=== PATIENT | male | born 1960 | race Caucasian/White ===

== ENCOUNTER 2023-06-01 05:24 | Inpatient (IN) ==
--- NOTE | 2023-05-01 11:21 | PAT Medication Instructions ---
Medication Instructions Date of Service May 01, 2023 Home Medications acetaminophen 500 mg tablet 500 mg PO Q6H PRN fexofenadine 180 mg tablet 180 mg PO QAM omeprazole 20 mg tablet,delayed release 20 mg PO DAILY PRN Continue as directed omeprazole 20 mg tablet,delayed release 20 mg PO DAILY PRN(if needed) DO NOT take the morning of surgery fexofenadine 180 mg tablet 180 mg PO QAM Take morning of surgery With a small sip of water, OTHERWISE NOTHING TO EAT OR DRINK AFTER MIDNIGHT: acetaminophen 500 mg tablet 500 mg PO Q6H PRN(if needed) Take evening before surgery acetaminophen 500 mg tablet 500 mg PO Q6H PRN(if needed) Other Notes If you have any questions please call us at [phone] or [phone] or [phone] or [phone]
--- NOTE | 2023-05-10 11:45 | Anesthesiology Consultation ---
Date of Service May 10, 2023 Assessment & Plan (1) Encounter for pre-operative examination: Chart Review Chart Review: Acceptable Risk for Surgery (pending PCP clearance ) and Patient seen in Pre Admission Testing - Awaiting PCP clearance 05/11/23 ([facility]) Patient is Jehovah Witness (T&S not done per patient request) (Per patient's Power of Rn Operating Room- "Use synthetic products if available before using blood fractions. Will accept devices that would be continually connected to body for blood storage and cleaning only if primed with non blood fluid. Will accept hemodilution cell salvage. Blood disconnected from the body must be discarded." Per PAT appt on 05/10/23, no recent illness/disease exposures, illness related symptoms, or recent illness/disease positive tests. Will leave to surgeon's discretion if preop Covid testing needed Teaching & Discussion Pre-Anesthesia Teaching/Discussion Notes: Instructed NPO after midnight before surgery,except medications with 15 cc of water. Medication instructions provided according to the PAT guidelines. History Surgery Operation Date: 06/01/23 09:35 Proposed Procedures p L2-L5 Decompression and Fusion, Spinal Cord Monitoring - Rivas Snowden DO Height/Weight Height: 5 ft 10.5 in Weight: 92.3 kg Allergies Allergy/AdvReac Type Severity Reaction Status Date / Time Penicillins Allergy Hives Verified 05/01/23 09:39 Medications Home Medications Medication Instructions Recorded Confirmed Last Taken acetaminophen 500 mg tablet 500 mg PO Q6H PRN Pain 05/01/23 05/01/23 Unknown fexofenadine 180 mg tablet 180 mg PO QAM 05/01/23 05/01/23 Unknown omeprazole 20 mg tablet,delayed 20 mg PO DAILY PRN gerd 05/01/23 05/01/23 Unknown release Past Medical History Medical History Refusal of blood transfusions as patient is Yarsanism Spinal stenosis GERD (gastroesophageal reflux disease) well controlled and stable - with Omeprazole PRN Sleep apnea BiPAP Exercise / Class Metabolic Activity II 4-5 Yardwork/Stairs/Walk up hill (one flight of stairs - no chest pain or SOB - exercises routinely ) Past Family History Family History Other No family history of adverse response to anesthesia Past Surgical History Surgical History History of colonoscopy Hx of LASIK History of wisdom tooth extraction History of esophagogastroduodenoscopy (EGD) Past Anesthesia History No Hx of Anesthesia Complications and No Family Hx of Anesthesia Complications History of PONV No Hx of PONV and No Hx of Motion Sickness Social History Smoking Status: Never smoker Do You Dip or Chew Tobacco: No Hx Alcohol Use: No Hx Substance Use: No substance use type: does not use Review of Systems Patient denies chest pain, shortness of breath, dyspnea on exertion, cough, wheezing, palpitations. No hx of seizures, stroke, [place]. No hx of blood clots or blood transfusions Physical Exam Vital Signs VITALS BP 133/75 P 61 TEMP 98.5 SP02 97% RESP 16 Constitutional no acute distress ENMT Mouth: no TMJ clicking Thyromental Distance: > or= 3.5 Finger Breadths (3.5) Mallampati Class: I Wire to front bottom teeth Neck neck extension not limited Respiratory normal respiratory effort; no respiratory distress Auscultation: lungs clear to auscultation bilaterally; no wheezes Cardiovascular Rate/Rhythm: regular rate and regular rhythm Heart Sounds: no murmur Vessels: no carotid bruit Musculoskeletal Spine: no pain with cervical ROM Extremities: extremities normal to inspection Psychiatric Orientation: alert Lab Results Anesthesia Preop Results Results Anesthesia Widget: WBC 5.98 K/ul (4.8-10.8) 05/10/23 Hgb 17.6 g/dl (14.0-18.0) 05/10/23 Hct 53.7 % (42.0-52.0) H 05/10/23 Plt 192 K/uL (130-400) 05/10/23 Na 141 mmol/L (136-145) 05/10/23 K 4.0 mmol/L (3.5-5.1) 05/10/23 Cl 104 mmol/L (98-107) 05/10/23 CO2 30 mmol/L (21-32) 05/10/23 BUN 17 mg/dl (6-23) 05/10/23 Creat 1.05 mg/dl (0.6-1.4) 05/10/23 Glucose Level 87 mg/dl (70-99(Fasting)) 05/10/23 PT 11.3 Seconds (9.0-12.0) 05/10/23 PTT 30 Seconds (21-31) 05/10/23 INR 1.0 (0.9-1.1) 05/10/23 Urine Color Yellow 05/10/23 Urine Appearance Clear (Clear) 05/10/23 Urine pH 7.0 (4.5-7.5) 05/10/23 Urine Specific [place] 1.015 (1.000-1.030) 05/10/23 Urine Protein Negative (Negative) 05/10/23 Urine Glucose (UA) Negative (Negative) 05/10/23 Urine Ketones Negative (Negative) 05/10/23 Urine Blood Trace (Negative) H 05/10/23 Urine Nitrite Negative (Negative) 05/10/23 Urine Bilirubin Negative (Negative) 05/10/23 Urine Urobilinogen Negative (Negative) 05/10/23 Urine Leukocyte Esterase Negative (Negative) 05/10/23 Urine WBC (Auto) 1-5 /hpf (0-5) 05/10/23 Urine RBC (Auto) 0-4 /hpf (0-4) 05/10/23 Urine Hyaline Casts (Auto) 0 /lpf (0-5) 05/10/23 Urine Epithelial Cells (Auto) 0-5 /lpf (0-5) 05/10/23 Urine Bacteria (Auto) Negative (Negative) 05/10/23 Testing Electrocardiogram Date: 05/10/23 Findings: + NSR @ (60bpm ) Normal EKG per cardio Chest X-Ray Date: 05/10/23 Findings: + NAD FINDINGS: PA and lateral chest radiographs are obtained. No prior studies are available for comparison at the time of dictation. The cardiomediastinal silhouette is unremarkable. There is mild bibasilar scarring/atelectasis. The lungs and pleural spaces are otherwise clear. There is no pneumothorax. The bony thorax appears intact. Stress Test Date: 10/04/18 Type: exercise Normal functional capacity. MPHR 101%. No significant chest discomfort. Negative exercise EKG response. This is a normal maximal treadmill exercise test
[2023-06-01] MEDS ORDERED: GABAPENTIN 600 MG DOSE PO SCH (06:00)
[2023-06-01] MEDS ORDERED: VANCOMYCIN HCL 1,500 MG in SODIUM CHLORIDE 0.9% 500 ML IV SCH (06:00)
[2023-06-01] MEDS ORDERED: ACETAMINOPHEN 500 MG TAB PO SCH (06:00)
[2023-06-01] MEDS ORDERED: LR 15ML/HR IV SCH (06:00)
[2023-06-01] MEDS ORDERED: LR 60ML/HR IV SCH (06:00)
[2023-06-01] MEDS ORDERED: CeleBREX 200 MG CAP PO SCH (06:00)
[2023-06-01] MEDS ORDERED: ATROPINE SULFATE 0.1 MG/ML 10ML SYR IV PRN (06:49)
[2023-06-01] MEDS ORDERED: ONDANSETRON INJ 2 MG/ML 2 ML VIAL IV PRN ×2 (06:49→13:51)
[2023-06-01] MEDS ORDERED: LABETALOL HCL IV 5 MG/ML 20ML IV PRN (06:49)
[2023-06-01] MEDS ORDERED: PROMETHAZINE HCL 6.25 MG in SODIUM CHLORIDE 0.9% 50 ML IV PRN (06:49)
[2023-06-01] MEDS ORDERED: LIDOCAINE 2% 2 ML VIAL/AMP(20MG/ML) INFIL ONE (06:58)
[2023-06-01] MEDS ORDERED: ONDANSETRON INJ 2 MG/ML 2 ML VIAL ONE (06:58)
[2023-06-01] MEDS ORDERED: DEXAMETHASONE SOD INJ 4 MG/ML VIAL ONE ×2 (06:58→07:01)
[2023-06-01] MEDS ORDERED: PROPOFOL IV EMULSION 10 MG/ML 20 ML VIAL IV ONE (06:58)
[2023-06-01] MEDS ORDERED: fentaNYL citrate PF 100 MCG/2 ML VIAL ONE (06:58)
[2023-06-01] MEDS ORDERED: ROCURONIUM BROMIDE 10 MG/ML 5 ML VIAL IV ONE ×4 (06:58→09:03)
[2023-06-01] MEDS ORDERED: HYDROmorphone INJ 2 MG/ML SYR/VIAL ONE (06:59)
[2023-06-01] MEDS ORDERED: MIDAZOLAM HCL 1 MG/ML 2ML VIAL ONE (06:59)
[2023-06-01] MEDS ORDERED: ceFAZolin 330 MG/ML 1 GM VIAL ONE (07:05)
[2023-06-01] MEDS ORDERED: KETAMINE HCL 10MG/ML SYR ONE (07:05)
[2023-06-01] MEDS ORDERED: BUPIVACAINE/EPINEPHRINE 0.5% MPF 1:200,000 30 ML VIAL ONE (07:06)
--- NOTE | 2023-06-01 08:09 | History & Physical Bridge Note ---
Date of Service June 01, 2023 History & Physical Bridge Note I have examined the patient, reviewed the History & Physical and in the interval since the performance of the History & Physical I have noted the following changes of clinical significance: no changes noted
--- NOTE | 2023-06-01 08:12 | History & Physical Report ---
Date of Service June 01, 2023 Assessment & Plan (1) Neurogenic claudication due to lumbar spinal stenosis: Plan: L2-L5 decompression and fusion History of Present Illness Chief Complaint: Back and leg pain Primary Care Provider: NO PCP 62-year-old male presents with chronic persistent back and leg pain after failing course of nonoperative care is here for surgical invention. Allergies Allergy/AdvReac Type Severity Reaction Status Date / Time Penicillins Allergy Hives Verified 06/01/23 05:52 Home Medications Medication Instructions Recorded Confirmed Type acetaminophen 500 mg tablet 500 mg PO Q6H PRN Pain 05/01/23 06/01/23 History fexofenadine 180 mg tablet 180 mg PO QAM 05/01/23 06/01/23 History omeprazole 20 mg tablet,delayed 20 mg PO DAILY PRN gerd 05/01/23 06/01/23 History release Past Med/Surg History Medical History Refusal of blood transfusions as patient is Synagogue Spinal stenosis GERD (gastroesophageal reflux disease) well controlled and stable - with Omeprazole PRN Sleep apnea BiPAP Surgical History History of colonoscopy Hx of LASIK History of wisdom tooth extraction History of esophagogastroduodenoscopy (EGD) Family History Other No family history of adverse response to anesthesia Social History Smoking Status: Never smoker Second Hand Exposure: No; Do You Dip or Chew Tobacco: No; Hx Alcohol Use: No Hx Substance Use: No Preferred Language: Kuwaiti Communication Ability: Effective Founder And Chief Executive Officer Required: No Beliefs That Will Affect Care: Baptism Baptism Beliefs: Synagogue - no blood products Current Living Situation: Spouse Feels Safe at Home: Yes Safety Concerns: Feels Safe At This Time Assistive Devices: Glasses Assistive Devices Comment: glasses for reading Physical Exam Physical Exam: Patient is alert and oriented Heart rate and rhythm Lungs clear Results & Data Results & Data Vital Signs (Past 12 Hours) Vital Signs Temp Pulse Resp BP Pulse Ox O2 Del Method 06/01/23 05:55 36.8 C 55 L 20 168/77 H 98 Room Air
[2023-06-01] MEDS ORDERED: FLOSEAL HEMOSTATIC MATRIX 10ML TOP ONE (09:04)
[2023-06-01] MEDS ORDERED: ePHEDrine sulfate 50 MG/5 ML SYR ONE (09:38)
[2023-06-01] MEDS ORDERED: SUGAMMADEX SODIUM 200 MG/2 ML VIAL IV ONE (11:16)
--- NOTE | 2023-06-01 11:25 | Operative Report ---
Post Operative Report Pre & Post Diagnosis Operation Date: 06/01/23 08:15 Pre-Op Diagnosis: Neurogenic claudication due to lumbar spinal stenosis Post-Op Diagnosis: Neurogenic claudication due to lumbar spinal stenosis I identified the patient and participated in the time-out.: Yes Procedure Operation Date: 06/01/23 08:15 Actual Procedures #1 lumbar decompression bilateral medial facetectomies and foraminotomies L2-L3, L3-L4 and L4-5. #2 posterior spinal fusion L2-L5. #3 placed posterior segmental instrumentation L2-L5. #4 interbody fusion L3-L4 L4-5. #5 placement spiral 10 x 26 mm at L3-L4 on the right and 11 x 26 mm at L4-5 on the left. #6 placement locally harvested morselized autograft and posterior gutters. #7 placement of I factor interbody space and infuse collagen sponge combined with Koros in the posterior lateral gutters. Surgeon Rivas Snowden DO Transportation Lead Suhas Suero Estimated Blood Loss 500 Findings Consistent with Post-Op Diagnosis Specimens None Indications This is a 62-year-old male presents manage diagnosis of failed course of nonoperative care is here for surgical invention. Description of Procedure Patient was met with identified informed consent obtained. Patient was then taken to the operative suite underwent ablation placed in a prone position on the Miller table on top of the Ferm[place] frame. All bony prominences well-padded eyes inspected to ensure no external pressure placed upon the. This point the lumbar spine was prepped and draped in a sterile fashion. Sharp dissection with the assistance of Bovie cautery form down to and exposing the lamina and transverse processes of L2 L3-L4-L5 bilaterally. From caudal cephalad fashion complete laminectomy of L4 L3 L2 was performed including bilaterally facetectomies and foraminotomies addressing severe spinal stenosis. Pedicle screws were then placed in L2-L3 L4-5 bilaterally with assistance of fluoroscopy in the process eve contoured and placed. By way of transforaminal approach on the left complete discectomy of L4-5 was performed endplates guarded to subcortical mean bone 11 x 26 mm Spira cage with I factor tapped in position. Then proceeded to L3-L4 by way of a transfemoral approach and right complete discectomy performed endplates guarded to subcortical bleeding bone and a 10 x 26 mm Spira cage filled with I factor tapped in position. The rods were then locked in final position bilaterally. The transverse processes of 2 3 and 45 were then burred to subcortical bleeding bone. Infuse collagen sponge combined with Koros and autograft was placed in the posterior gutters. 15 round KEELY inserted. The incision was then closed with 1 Vicryl to fascia 2-0 Vicryl subcutaneously and 4 Monocryl for fascial closure. Steri-Strips dressing placed. Patient was then taken to PACU in stable condition. Please note Suhas Suero was present at the entire procedure involved in patient positioning complex portion of the surgery and final skin closure. Lastly spinal cord monitoring was utilized at the procedure no changes noted. I attest to the content of the Intraoperative Record and any orders documented therein. Any exceptions are noted below.
--- NOTE | 2023-06-01 11:31 | Fluoroscopy Report ---
FL lumbar spine 2-3V CLINICAL HISTORY: L2-L5 DECOMPRESSION FUSION WITH INTERBODY COMPARISON STUDY: None FLUOROSCOPY TIME: 36.5 seconds FLUOROSCOPY IMAGES: 3 EXPOSURE DOSE: 27.07 mGy FINDINGS: Posterior interbody eve and screw fusion hardware is noted in what appears to be the L2-L5 levels with L3-L4 and L4-L5 discectomy. The hardware appears intact. Multilevel moderate intervertebr al disc space narrowing, spondylotic spurring and facet arthrosis. No unexpected opaque foreign ambika s. Dextroscoliosis. IMPRESSION: Fluoroscopic assistance as above. ACT 112: Negative or not required by law. Electronically signed by: Omari Celestin M.D. 06/01/2023 11:29 AM
--- NOTE | 2023-06-01 12:53 | Anesthesiology Progress Note ---
Date of Service June 01, 2023 Anesthesia Post Procedure Vital Signs Vital Signs: Temp Pulse Pulse Resp BP Pulse Ox O2 Del Method 06/01/23 12:45 74 22 123/80 95 Room Air 06/01/23 12:35 78 12 134/85 93 Room Air 06/01/23 12:25 72 12 143/85 H 95 Oxymask 06/01/23 12:15 90 14 116/79 98 Oxymask 06/01/23 12:05 75 14 135/70 99 Oxymask 06/01/23 11:55 36.4 C L 67 12 131/79 99 Oxymask 06/01/23 05:55 36.8 C 55 L 20 168/77 H 98 Room Air O2 Flow Rate 06/01/23 12:45 06/01/23 12:35 06/01/23 12:25 4 06/01/23 12:15 6 06/01/23 12:05 8 06/01/23 11:55 10 06/01/23 05:55 Pain Intensity Left Lower Back: Pain Intensity: 4 Transfer of Care Handoff Completed per policy Notes Mental Status: alert / awake / arousable Patient Amnestic to Procedure: Yes Nausea / Vomiting: adequately controlled Pain: adequately controlled Airway Patency, RR, SpO2: stable & adequate BP & HR: stable & adequate Hydration State: stable & adequate Anesthetic Complications: no major complications apparent
[2023-06-01] MEDS: HYDROmorphone INJ 1 MG/ML SYRINGE IV PRN ×5 (12:55→23:04)
[2023-06-01] MEDS ORDERED: ACETAMINOPHEN 1,000 MG/100 ML VIAL IV PRN (13:51)
[2023-06-01] MEDS ORDERED: bisacodyL 10 MG SUPP PR PRN (13:51)
[2023-06-01] MEDS ORDERED: ALUMINUM/MAGNESIUM SUSP 30 ML UDC PO PRN (13:51)
[2023-06-01] MEDS ORDERED: SOD PHOSPHATE/SOD BIPHOSPHATE ENEMA 132 ML BTL PR PRN (13:51)
[2023-06-01] MEDS ORDERED: DO NOT ADMINISTER FLU VACCINE PRN (13:51)
[2023-06-01] MEDS ORDERED: hydrOXYzine HCl 25 MG TAB PO PRN (13:51)
[2023-06-01] MEDS ORDERED: LORazepam 0.5 MG in SYRINGE 0.25 ML IV PRN (13:51)
[2023-06-01] MEDS ORDERED: DO NOT ADMINISTER PNEUMOCOCCAL VACCINE PRN (13:51)
[2023-06-01] MEDS ORDERED: LACTATED RINGER'S 1,000 ML IV SCH (13:51)
[2023-06-01] MEDS ORDERED: NALOXONE HCL 0.4 MG/1 ML VIAL/CARP IV PRN (13:51)
[2023-06-01] MEDS ORDERED: PROMETHAZINE HCL 12.5 MG in SODIUM CHLORIDE 0.9% 50 ML IV PRN (13:51)
[2023-06-01] MEDS ORDERED: ONDANSETRON 4 MG OD TAB PO PRN (13:51)
[2023-06-01] MEDS ORDERED: METOCLOPRAMIDE HCL INJ 5 MG/ML 2 ML VIAL IV PRN (13:51)
[2023-06-01] MEDS ORDERED: HYDROmorphone INJ 0.5 MG/0.5 ML SYR IV PRN (13:51)
[2023-06-01] MEDS ORDERED: FAMOTIDINE 20 MG TAB PO PRN (13:51)
[2023-06-01] MEDS ORDERED: diphenhydrAMINE Capsule 25 MG CAP PO PRN (13:51)
[2023-06-01] MEDS ORDERED: VANCOMYCIN CONSULT ACTIVE PRN (13:51)
[2023-06-01] MEDS ORDERED: MAGNESIUM HYDROXIDE SUSP 30 ML UDC PO PRN (13:51)
[2023-06-01] MEDS ORDERED: PANTOprazole 40 MG TAB PO PRN (14:07)
[2023-06-01] MEDS: KETOROLAC 30 MG/ML VIAL IV SCH ×2 (14:25→19:25)
--- NOTE | 2023-06-01 15:08 | Hospitalist Consultation ---
Date of Consultation June 01, 2023 Assessment & Plan (1) Status post lumbar spine surgery for decompression of spinal cord: Lumbar decompression of L2-L5 with Dr. Snowden on 06/01/2023 Postop lumbar spine x-ray revealed multilevel moderate intervertebral disc space narrowing, spondylitic spurring, and facet arthrosis; however, hardware intact Perioperative antibiotics, pain management, DVT PPx, and fluids per the primary team Per patient, no new complaints at time of consult Agree with a.m. CBC, BMP, we will follow PT consulted (2) GERD (gastroesophageal reflux disease): Continue omeprazole, or pantoprazole equivalent (3) Sleep apnea: Patient brought in his home BiPAP to the hospital; okay to use while inpatient Plan Agree with medical management: Disposition: MedSurg Full liquid diet, and advance as tolerated VTE PPx: SCDs/teds Thank you for allowing us to participate in the care of this patient, please reach out with any questions or concerns. History of Present Illness Reason for Consultation: Medical management Requesting Physician: Rivas Snowden DO Attending Physician: Rivas Snowden DO History of Present Illness Kalyan is a pleasant 62-year-old male with PMH of GERD, RENE. He presented for L2-L5 decompression and fusion with Dr. Snowden on 06/01/2023 for neurogenic claudication due to lumbar spinal stenosis. Per review of operative note, EBL was listed as 500 cc. Patient is not having LBP at time of consult. He endorses mild lower back tightness, but notes that the burning sensation he had before is gone. No radiation of the back or down into the legs. No pain at present. He is okay lying in his current position, and is eager to start ambulating. Patient took omeprazole and Enma last night; no other medications. He has been occasionally taking Tylenol as needed in the mornings for LBP. He also reports that he frequently kneels whenever the LBP comes on, which helps to open up the back. Patient uses a home BiPAP at night which he brought in to the hospital. No other supplemental oxygen therapy. Patient reports he has been eating and drinking okay since being up. Thorpe in place, but no reported burning urinary sensation. Per review of patient's vitals, he has been stable postop; SpO2 97% on RA ROS: Patient endorses brain fog, nausea, and lower back tightness. Patient denies fever, chills, sweating, dizziness, lightheadedness, headache, chest pain, pleuritic CP, SOB, cough, abdominal pain, vomiting, or numbness/tingling in the legs. Allergies Allergy/AdvReac Type Severity Reaction Status Date / Time Penicillins Allergy Hives Verified 06/01/23 05:52 Home Medications Medication Instructions Recorded Confirmed Type acetaminophen 500 mg tablet 500 mg PO Q6H PRN Pain 05/01/23 06/01/23 History fexofenadine 180 mg tablet 180 mg PO QAM 05/01/23 06/01/23 History omeprazole 20 mg tablet,delayed 20 mg PO DAILY PRN gerd 05/01/23 06/01/23 History release Patient History Medical History (Updated 06/01/23 @ 15:05 by Kevin Wilhelm PA-C) Refusal of blood transfusions as patient is Anabaptism Spinal stenosis GERD (gastroesophageal reflux disease) well controlled and stable - with Omeprazole PRN Sleep apnea BiPAP Surgical History (Updated 06/01/23 @ 15:05 by Kevin Wilhelm PA-C) History of colonoscopy Hx of LASIK History of wisdom tooth extraction History of esophagogastroduodenoscopy (EGD) Family History Other No family history of adverse response to anesthesia Social History (Updated 06/02/23 @ 05:15 by Carlie Bosch, RN) Smoking Status: Former smoker Second Hand Exposure: No; Do You Dip or Chew Tobacco: No; Hx Alcohol Use: Yes Alcohol type: beer Alcohol type Comment: pt states he no longer drinks Hx Substance Use: Yes (patient states he no longer uses ) Prescribed Medications: Marijuana Preferred Language: Eritrean Communication Ability: Effective Private Duty Nurse Required: No Beliefs That Will Affect Care: Church Church Beliefs: Anabaptism - no blood products Current Living Situation: Spouse Feels Safe at Home: Yes Safety Concerns: Feels Safe At This Time Assistive Devices: BiPap and Cane Assistive Devices Comment: glasses for reading Review of Systems Review of Systems: See HPI above Physical Exam Physical Exam: General: no acute distress; pleasant affect; non-toxic appearing; well- nourished; cooperative HEENT: normocephalic, atraumatic; no scleral icterus; excessive blinking; PERRLA w/ EOMs intact; moist mucus membrane; vision and hearing grossly intact Neck: supple; no lymphadenopathy; trachea midline Skin: warm, dry without signs of tenting; no cyanosis; no rashes, bruising, lesions, or erythema noted CV: chest wall NTP; RRR; S1/S2 normal; no murmurs/rubs/gallops; pulses intact and symmetric at radial, DP, and PT Lungs: no acute respiratory distress; symmetrical chest wall expansion; clear breath sounds across all lung parker w/o adventitious sounds; no wheezing ABD: Soft, NTP; BS present; no rebound/guarding; no ascites; no distention Back: Upper spine NTP; surgical site dressed without signs of erythema, drainage, or infection MSK: no tics or fasciculations; no edema noted in the LEs b/l, nonerythematous (SCDs/teds in place); patient demonstrates ability to wiggle toes bilaterally; neurovascularly intact Neuro: A&Ox3; normal mood and affect; fluent speech; no focal deficits; sensation grossly intact in the LEs b/l assessed via light touch at the feet Results & Data Results & Data Vital Signs (Past 12 Hours) Vital Signs Temp Pulse Pulse Resp BP Pulse Ox O2 Del Method 06/01/23 13:51 36.7 C 66 18 125/84 97 Room Air 06/01/23 13:25 56 L 14 111/61 97 Room Air 06/01/23 13:15 61 18 119/78 95 Room Air 06/01/23 13:05 67 22 119/71 97 Room Air 06/01/23 12:55 36.5 C 75 18 116/71 95 Room Air 06/01/23 12:45 74 22 123/80 95 Room Air 06/01/23 12:35 78 12 134/85 93 Room Air 06/01/23 12:25 72 12 143/85 H 95 Oxymask 06/01/23 12:15 90 14 116/79 98 Oxymask 06/01/23 12:05 75 14 135/70 99 Oxymask 06/01/23 11:55 36.4 C L 67 12 131/79 99 Oxymask 06/01/23 05:55 36.8 C 55 L 20 168/77 H 98 Room Air O2 Flow Rate 06/01/23 13:51 06/01/23 13:25 06/01/23 13:15 06/01/23 13:05 06/01/23 12:55 06/01/23 12:45 06/01/23 12:35 06/01/23 12:25 4 06/01/23 12:15 6 06/01/23 12:05 8 06/01/23 11:55 10 06/01/23 05:55 Diagnostic Findings Lumbar Spine X-Ray 06/01/23 08:15 FL lumbar spine 2-3V CLINICAL HISTORY: L2-L5 DECOMPRESSION FUSION WITH INTERBODY COMPARISON STUDY: None FLUOROSCOPY TIME: 36.5 seconds FLUOROSCOPY IMAGES: 3 EXPOSURE DOSE: 27.07 mGy FINDINGS: Posterior interbody eve and screw fusion hardware is noted in what appears to be the L2-L5 levels with L3-L4 and L4-L5 discectomy. The hardware appears intact. Multilevel moderate intervertebral disc space narrowing, spon dylotic spurring and facet arthrosis. No unexpected opaque foreign bodies. Dextroscoliosis. IMPRESSION: Fluoroscopic assistance as above. ACT 112: Negative or not required by law. Electronically signed by: Omari Celestin M.D. 06/01/2023 11:29 AM PG Care Time/CCT Total # of Minutes Spent Total Time Spent with Patient: Total time spent is greater than 50% in coordination of care (as documented) at patient's floor/unit and/or counseling patient: Coding [place] [address] IN/OBS CONSULT LVL 2,35M Patient Type Established Medical Decision Making Low Complexity Diagnoses Status post lumbar spine surgery for decompression of spinal cord Z98.890 GERD (gastroesophageal reflux disease) K21.9 Sleep apnea G47.30
[2023-06-01] MEDS ORDERED: VANCOMYCIN HCL 1,250 MG in SODIUM CHLORIDE 0.9% 250 ML IV SCH (18:00)
[2023-06-01] MEDS ORDERED: VANCOMYCIN HCL 1,250 MG in SODIUM CHLORIDE 0.9% 500 ML IV SCH (18:00)
[2023-06-01] MEDS: DOCUSATE SODIUM/SENNA 50/8.6MG TAB PO SCH (19:25)
[2023-06-01] MEDS: traMADol HCL 50 MG TABLET PO PRN (22:10)
[2023-06-02] MEDS: KETOROLAC 30 MG/ML VIAL IV SCH ×2 (01:49→07:32)
[2023-06-02] MEDS: POLYETHYLENE (MIRALAX) 17 GM PACK PO SCH ×4 (04:43→22:59)
[2023-06-02] MEDS: HYDROmorphone INJ 1 MG/ML SYRINGE IV PRN ×2 (04:46→22:56)
[2023-06-02 06:23] LABS: Basophils # (auto) 0.03 K/uL (0.00-0.20); Basophils % (auto) 0.2 %; Eosinophils # (auto) 0.01 K/uL (0.00-0.50); Eosinophils % (auto) 0.1 %; Hematocrit (blood only) 43.3 % (42.0-52.0); Hemoglobin 14.3 g/dl (14.0-18.0); Immature Granulocytes # (auto) 0.06 K/uL (0.01-0.20); Immature Granulocytes % (auto) 0.4 %; Lymphocytes % (auto) 10.7 %; Mean Corpuscular Hemoglobin 28.8 pg (25.0-34.0); Mean Corpuscular Volume 87.1 fL (80.0-100.0); Mean Platelet Volume 9.4 fL (9.4-12.4); Monocytes # (auto) 1.26 K/uL (0.11-0.59); Neutrophils % (auto) 79.6 %; Platelet Count 194 K/uL (130-400); RDW Coefficient of Variation 12.2 % (11.5-14.5); RDW Standard Deviation 39.3 fL (36.4-46.3); Red Blood Count 4.97 M/uL (4.70-6.10); White Blood Count 13.96 K/ul (4.8-10.8)
[2023-06-02 06:36] LABS: BUN Creatinine Ratio 19.6 (10-20); Creatinine Clr Calc Pharmacy 86.5 ml/min; Est GFR (African American) 91.5 ml/min; Potassium 4.2 mmol/L (3.5-5.1)
[2023-06-02] MEDS: FEXOFENADINE HCL 180 MG TAB PO SCH (07:32)
[2023-06-02] MEDS: dexAMETHasone 6 MG in SYRINGE 0 ML IV SCH (07:32)
--- NOTE | 2023-06-02 08:30 | Orthopedic Progress Note ---
Date of Service June 02, 2023 Assessment & Plan (1) Neurogenic claudication due to lumbar spinal stenosis: Plan: Kalyan is postoperative day 1 status post L2-5 decompression and fusion. Maintain KEELY drain. Start physical therapy today. Ambulate ad willem. Continue with pain control. DVT prophylaxis is in the form teds and SCDs. Anticipate discharge home early next week Admission and Anticipated Discharge Date Admission Date: June 01, 2023 Subjective Kalyan is postoperative day 1 status post L2-L5 decompression and instrumented fusion. He had an uneventful evening. H&H is morning are 14.3 and 43.3 respectively. KEELY drain output last shift was 100 cc. Back and leg pain greatly improved. Thorpe catheter was removed remove this morning. He has not been up and ambulatory yet. Review of Systems Review of Systems: All systems reviewed & are unremarkable except as noted in HPI & below Physical Exam Physical Exam: Sitting in a chair eating breakfast in no acute distress Lumbar dressing is clean dry and intact with functioning KEELY drain Calf soft and nontender bilaterally Strength intact bilateral lower extremities Results & Data Vital Signs (Past 12 Hours) Vital Signs Temp Pulse Pulse Resp BP Pulse Ox O2 Del Method 06/02/23 07:28 36.5 C 55 L 16 111/61 96 Room Air 06/02/23 07:27 36.5 C 57 L 16 145/73 H 99 Room Air 06/02/23 03:33 36.6 C 58 L 14 100/48 L 96 Room Air 06/01/23 22:59 36.7 C 56 L 16 116/52 L 96 Room Air
[2023-06-02] MEDS: oxyCODONE HCL IR 5 MG TAB (IMMEDIATE RELEASE) PO PRN ×2 (11:08→19:20)
--- NOTE | 2023-06-02 12:06 | Hospitalist Progress Note ---
Date of Service June 02, 2023 Assessment & Plan (1) Status post lumbar spine surgery for decompression of spinal cord: Plan: Lumbar decompression of L2-L5 with Dr. Snowden on 06/01/2023 -Perioperative antibiotics, pain management, DVT PPx, and fluids per the primary team Hemoglobin stable:14.3. leukocytosis likely reactive from steroids received intraoperatively PT consulted (2) GERD (gastroesophageal reflux disease): Plan: Continue PPI (3) Sleep apnea: Plan: Patient brought in his home BiPAP to the hospital; continue use while inpatient Plan Disposition: medically stable VTE PPx: SCDs/teds Hospitalist service will sign off. Please reach out with any new concerns. Admission and Anticipated Discharge Date Admission Date: June 01, 2023 Supervising Physician Co-Signing Physician Notes Attending Attestation - Chart reviewed, care plan d/w MEHNAZ Evans. I agree w/ the cheema components of her documentation. Chad Keith MD Subjective patient seen ambulating in the room. States his pain is well-controlled. Had a small pellet-like stool this morning. Reports good appetite. denies chest pain or shortness of breath. No acute concerns Hopeful to return home in the next few days, possibly tomorrow Review of Systems Review of Systems: All systems reviewed & are unremarkable except as noted in Subjective Physical Exam Physical Exam: General: NAD, ambulating with walker, VS as above Resp: normal respiratory effort, lungs clear to auscultation CV: RRR, no murmur, back: KEELY drain in place, dressing clean dry and intact Extremities: Moves all extremities, RENA hose on bilateral lower extremities Neuro: A&O x3, Skin: intact, no lesions noted Results & Data Results & Data Vital Signs (Past 12 Hours) Vital Signs Temp Pulse Pulse Resp BP Pulse Ox O2 Del Method 06/02/23 07:28 36.5 C 55 L 16 111/61 96 Room Air 06/02/23 07:27 36.5 C 57 L 16 145/73 H 99 Room Air 06/02/23 03:33 36.6 C 58 L 14 100/48 L 96 Room Air Laboratory Results CBC and chemistry reviewed PG Care Time/CCT Total # of Minutes Spent Total Time Spent with Patient: Total time spent is greater than 50% in coordination of care (as documented) at patient's floor/unit and/or counseling patient: Coding Level of Care Code 04013 SUB INP/OBS CARE MIN Diagnoses Status post lumbar spine surgery for decompression of spinal cord Z98.890 GERD (gastroesophageal reflux disease) K21.9 Sleep apnea G47.30
[2023-06-02] MEDS: DOCUSATE SODIUM/SENNA 50/8.6MG TAB PO SCH (19:34)
[2023-06-02] MEDS: LORazepam 0.5 MG TAB PO PRN ×2 (20:30→21:52)
[2023-06-03] MEDS: POLYETHYLENE (MIRALAX) 17 GM PACK PO SCH ×3 (06:01→17:06)
[2023-06-03] MEDS: FEXOFENADINE HCL 180 MG TAB PO SCH (08:11)
[2023-06-03] MEDS: dexAMETHasone 6 MG in SYRINGE 0 ML IV SCH (08:11)
--- NOTE | 2023-06-03 08:36 | Orthopedic Progress Note ---
Date of Service June 03, 2023 Assessment & Plan (1) Neurogenic claudication due to lumbar spinal stenosis: Plan: Kalyan is postoperative day 2 status post L2 through 5 decompression and fusion. Will continue physical therapy today. Continue with pain control. DVT prophylaxis is in the form teds and SCDs. Continue with aggressive bowel regimen. Maintain KEELY drain. Anticipate discharge home tomorrow. Admission and Anticipated Discharge Date Admission Date: June 01, 2023 Lamont Biggs is postoperative day 2 status post L2-5 decompression and fusion. Had some more limiting pain last evening requiring IV medication. It is better this morning. Right leg pain has resolved. Still has some occasional left lower extremity symptoms. Yesterday in physical therapy imaging 300 feet. KEELY drain output last shift was 55 cc. He is passing flatus but no bowel movement. Review of Systems Review of Systems: All systems reviewed & are unremarkable except as noted in HPI & below Physical Exam Physical Exam: Sitting in a chair in no acute distress Alert and oriented x 3 lumbar dressing is clean dry intact with functioning KEELY drain Strength unchanged bilateral lower extremities Calf soft and nontender bilaterally Results & Data Vital Signs (Past 12 Hours) Vital Signs Temp Pulse Resp BP Pulse Ox O2 Del Method 06/03/23 07:51 36.6 C 56 L 16 152/76 H 98 Room Air
[2023-06-03] MEDS: ACETAMINOPHEN 500 MG TAB PO PRN (16:31)
[2023-06-03] MEDS: DOCUSATE SODIUM/SENNA 50/8.6MG TAB PO SCH (21:10)
[2023-06-03] MEDS: traMADol HCL 50 MG TABLET PO PRN (21:13)
[2023-06-04] MEDS: FEXOFENADINE HCL 180 MG TAB PO SCH (07:33)
[2023-06-04] MEDS: dexAMETHasone 6 MG in SYRINGE 0 ML IV SCH (07:33)
[2023-06-04] MEDS: ACETAMINOPHEN 500 MG TAB PO PRN (07:37)
--- NOTE | 2023-06-04 10:43 | Discharge Summary ---
Date of Service June 04, 2023 Admission HPI Per Admitting Provider 62-year-old male presents with chronic persistent back and leg pain after failing course of nonoperative care is here for surgical invention. Principal Diagnosis Lumbar spinal stenosis with neurogenic claudication Discharge Data Allergies Allergy/AdvReac Type Severity Reaction Status Date / Time Penicillins Allergy Hives Verified 06/01/23 05:52 Consultations 06/01/23 13:51 Consult Hospitalist Routine Procedures Performed Operation Date: 06/01/23 08:15 Actual Procedures p L2-L5 Decompression and Fusion, Spinal Cord Monitoring(Not Applicable) - Rivas Snowden DO Ordered Studies 06/01/23 08:15 [place] lumbar spine 2-3V Routine Hospital Course (1) Neurogenic claudication due to lumbar spinal stenosis: Patient went multilevel lumbar decompression fusion tolerated this well was taken to orthopedic for postoperative. Postop Carlton progressed appropriately. Up and ambulating daily. KEELY drain decreasing well. Pain well-controlled. Excellent strength testing. Simply discharged home. Discharge orders instructions on the chart for further review. Total Time Total Time Spent Total Time Spent (In Minutes): 20 minutes Discharge Plan Discharge Items Patient Disposition: Home - Self-Care Reason For Visit: Lumbar Spondylosis, Spinal Stenosis of Lumbar Peggy Discharge Diagnosis: Lumbar spinal stenosis with neurogenic claudication Activity: As commented below Non-emergency contact: Primary Care Provider Call non-emergency contact if: you have any medication questions Follow-up/Referrals: PCPANGIE [Primary Care Provider] - Diet: Regular Addtl Attending Provider Instructions: ACTIVITY RECOMMENDATIONS: SELF CARE INSTRUCTIONS AFTER THORACIC/LUMBAR FUSIONS 1. You may walk to your tolerance. It is good exercise for your legs and back. Expect some back and intermittent leg aches and pains. 2. You may perform "counter-top" level activities (make a sandwich, bob with a project, etc.). 3. No bending or lifting of more than 10 pounds or back twisting of any nature (roll like a log when turning in bed). 4. You may ride in a car for 20-30 minutes at a time. No driving until after your first visit with your doctor. 5. Frequent changes of position and restricting sitting to 30 minutes at a time will help limit the amount of back spasms and stiffness you may experience. 6. You may discontinue the use of ambulatory aids (cane, crutches, etc.) once your strength and confidence allow. 7. You may employment instructional associate the shower and let water strike your incision when you arrive home at least once daily. Do not take a tub bath, sit in a hot tub or go into a swimming pool until after your first recheck in the office. SPECIAL CARE INSTRUCTIONS: VERY IMPORTANT TO READ AND REVIEW A. Your surgical incision has been closed with a cosmetic suture under the skin that will dissolve in about 6 weeks. In 14 days, you can use a pair of clean scissors and cut the suture that is left outside of the skin at the ends of your incision. 1. The small skin tapes can be removed 7 days after surgery if they have not fallen off by that point. 2. You may keep the wound open to air as much as possible to promote healing after post-op day number 5 unless told otherwise by your doctor. 3. If you think the wound looks like it is becoming infected (redness or worsening drainage) and/or you are experiencing fever, chill or worsening back pain and muscle spasms, contact the office so that we may evaluate you as soon as possible. B. Complications are uncommon, but please contact us if you have any signs or symptoms of: 1. wound infection (fever higher than 102.5 degrees F, redness, separation of wound, drainage, or increasing pain from the incision) 2. blood clots in legs (pain, swelling, redness and warmth in legs) 3. urinary tract infection (fever higher than 102.5 degrees F, burning upon urination or increased frequency of urination) 4. nerve problems (inability to walk on your toes or heels, numbness, loss of bowel or bladder control) 5. any other symptoms that concern you C. Please call the office at if you have any concerns or questions about your operation or recovery. D. No smoking! Smoking drastically decreases the chance of a solid fusion. E. Do not take any anti-inflammatory medications (Indocin, Advil, Motrin, Aspirin, Naprosyn, etc.) as these may inhibit the chance of a solid fusion. Tylenol is okay to take for pain. MANAGING PAIN AFTER SPINAL SURGERY 1. Narcotic medication is intended for short-term use and will be provided for surgical pain. Surgical pain usually lasts for a period of 4-6 weeks. Narcotic medication includes Percocet, Vicodin, Darvocet, Tylenol #3 or Lortab. 2. Longer-term pain is more appropriately treated with non-narcotic medication such as Tylenol ES. 3. Muscle spasm is not appropriately treated with narcotics. Muscle relaxers such as Soma, Flexeril or Skelaxin can be used along with Tylenol ES. 4. Remember that we all live with some "aches and pains". This is not unusual or uncommon after an injury or as we get older. a. Back pain is expected and may include muscle spasms for 4 to 6 weeks after surgery. The pain should gradually improve. If the pain worsens for no apparent reason, please contact the office. b. Intermittent leg pain may also be experienced and should not be concerned about unless it worsens for no apparent reason. If so, please contact the office. 5. We will provide appropriate medication within the normal guidelines of their prescribed use. We will also be very cautious and aware of potential abuse and extended duration of patients' medication needs. a. Pain medications are for your comfort and to assist with sleep and rest so that the tissue can heal. They are not provided in order to return to normal activity and should not be used through the day. To do so or worsening pain at night can result from ongoing tissue damage and development of tolerance to the prescribed medicine. 6. Please allow 2-3 days to process refills. Prescriptions will not be mailed but must be picked up at the office. FOLLOW UP VISIT: Keep your scheduled follow-up appointment. Any questions, please call the office at . Pending Studies at Discharge: No Stand-Alone Forms: My [facility], Smoking Cessation Medications and [place] Order Prescriptions: New tramadol 50 mg tablet 50 mg PO Q6H PRN (Reason: pain, moderate) Qty: 30 0RF oxycodone 5 mg tablet 5 mg PO Q6H PRN (Reason: pain) Qty: 30 0RF Continued fexofenadine 180 mg Tablet 180 mg PO QAM omeprazole 20 mg Tablet,Delayed Release (Dr/Ec) 20 mg PO DAILY PRN (Reason: gerd) acetaminophen 500 mg Tablet 500 mg PO Q6H PRN (Reason: Pain) Discharge Orders: Discharge Order (Routine); Ordered 06/04/23 Ordered By: Rivas Snowden Admission Data Admit Date/Time: 06/01/23 11:31 Attending Provider: Rivas Snowden Admit Provider: Rivas Snowden Primary Care Provider: PCPANGIE
[2023-06-04] MEDS: traMADol HCL 50 MG TABLET PO PRN (11:02)
== END 2023-06-04 14:22 | disposition home or self-care (01) | DRG 455 ==
LOC: ASU 05:24 → 3E 11:31
DX: M48.062 Spinal stenosis, lumbar region with neurogenic claudication; K21.9 Gastro-esophageal reflux disease without esophagitis; Z87.891 Personal history of nicotine dependence; G47.30 Sleep apnea, unspecified; Z88.0 Allergy status to penicillin

== ENCOUNTER 2023-06-06 21:58 | Observation (INO) ==
--- NOTE | 2023-06-06 23:41 | Emergency Department Note ---
Impression & Plan Intractable low back pain, Lumbar back pain with radiculopathy affecting left lower extremity, Status post lumbar spine surgery for decompression of spinal cord ED Provider Note CHIEF COMPLAINT: Back pain HISTORY OF PRESENTING ILLNESS: This 62-year-old male patient presents to the emergency department with his and daughter for evaluation of low back pain and trouble walking. The patient had L2-L5 spinal decompression and fusion on 06/01/[address] Snowden. The patient states that he had poor control of his pain postoperatively while still an inpatient. He was discharged on 06/04/2023 with oxycodone and tramadol. The patient states that 12 hrs after discharge he started with more severe pain. Having trouble sleeping, sitting, and walking because of the pain. The patient is having trouble getting up to go to the bathroom because of the pain. Last BM was 2 days ago. He has been taking the Miralax as directed, but having some trouble pushing out the stool because of pain. Having "nerves firing" and a burning pain down the whole left leg. Not having true numbness. He denies any saddle anesthesias. He denies any loss of control of his bowel or bladder functions. He is also having muscle spasms that he sometimes can't control. He feels like his left leg doesn't know what to do b/c it just keeps firing different levels of pain and burning and he can't get comfortable. The right leg feels much better since the surgery. No fevers. No redness, swelling, or discharge from the incision site. He is not on any blood thinners. Denies abdominal pain, chest pain, or SOB. Had oxycodone at 2030 and tramadol at 1945 as well as Tylenol at 2019. Dr. Snowden just called in a Medrol Dose Sohail earlier today. The patient states that the only thing that relieved his symptoms was the IV pain medication in the hospital. REVIEW OF SYSTEMS: See HPI for pertinent positives and pertinent negatives. ALLERGIES: PCN MEDICATIONS: Tramadol, oxycodone, omeprazole PAST MEDICAL HISTORY: GERD, Spinal surgery PHYSICAL EXAM: VITALS: Vitals are noted on the nurse's note and reviewed by myself. GENERAL: Appears in pain, but non toxic in appearance and in no acute distress. Non-diaphoretic. SKIN: The patient's surgical incision appears to be healing well without erythema, edema, or discharge. HEAD: Normocephalic atraumatic. EYES: Pupils equal round and reactive to light and accommodation. The Extraocular movements intact. NECK: Supple without nuchal rigidity. No cervical spine tenderness. No paraspinous muscle tenderness. No lymphadenopathy. HEART: Regular rate and rhythm without murmurs gallops or rubs. LUNGS: Clear to auscultation bilaterally without wheezes, rales or rhonchi. ABDOMEN: Positive bowel sounds x 4. Normal tympanic percussion. Soft, nontender, without masses or organomegaly. Higginbotham sign negative. MUSCULOSKELETAL: There is tenderness over the lumbar spinous processes as well as the L>R paraspinal muscles. There is no tenderness over the thoracic spine or paraspinous muscles. There are no muscle spasms present on exam at this time. The patient is slow to move around with maximum tenderness with flexion of the spine or trying to lie down flat. Positive straight leg raise test on the left. NEURO: Patient was alert and oriented to person place and time. Normal sensation to light and sharp touch of the left lower extremity. Deep tendon reflexes 2+ in the lower extremities. Dorsalis pedis and posterior tibial pulses 2+ bilaterally. The patient is able to walk, but with a limp on the left leg from the pain. He is able to stand up on his toes. DIFFERENTIAL DIAGNOSIS: Differential diagnosis includes strain/sprain, muscle spasm, disc herniation, fracture, subluxation, metastatic disease, cord compression, discitis, sciatica, cauda equina, conus medullaris syndrome, infection, epidural abscess, epidural hematoma, aortic disease, renal colic, UTI, pyelonephritis, gastrointestinal, as well as other pathologies. ED COURSE AND MEDICAL DECISION MAKING: MEDICATIONS GIVEN: 500 mL normal saline solution bolus. Morphine 4 mg IV, Zofran 4 mg IV. Dilaudid 0.5 mg IV x 2. Decadron 10 mg IV. INTERPRETATION OF LABS: I interpreted the labs with full lab results as below in the lab section of this note. White blood cell count stable at 13.41. Hemoglobin normal at 14.3. Platelet count normal at 261. Sodium slightly low at 134 and glucose 121, but CMP otherwise normal. INTERPRETATION OF IMAGING: MRI of the lumbar spine without contrast was ordered, but was still pending at the time of change of shift. EXTERNAL RECORDS REVIEWED: I reviewed the patient's operative notes as well as his admission notes for the surgery. CONSULTATIONS: Multiple attempts to reach Dr. Snowden of spinal surgery were unsuccessful and we still had not heard back from him at the time of shift change. I also spoke with the on-call hospitalist in regards to the patient for admission for pain control pending MRI results. MDM SUMMARY: I examined the patient. I reviewed the patient's operative and admission notes. The patient states that he has never had good control of his pain since the surgery. However, the pain has gotten worse at home despite the oxycodone and tramadol. He is having nerve pain into the left leg that may be consistent with radiculopathy/sciatica based on history and exam. The patient was started on a Medrol Dosepak by Dr. Snowden today. However, the patient is unable to control his pain at home and has been unable to sleep and is having difficulty getting to the bathroom because of the pain with walking. An IV lock was placed and labs were drawn. The patient was medicated as above for his pain. I attempted to contact Dr. Snowden of spinal surgery to discuss the patient and his symptoms. However, we were unable to get a hold of Dr. Snowden. I discussed the case with the on-call hospitalist for admission for pain control. The hospitalist recommended either discussion with Dr. Snowden or imaging to rule out more emergent etiologies of his symptoms prior to the patient being admitted. Since I was unable to get a hold of Dr. Snowden, an MRI was ordered. The MRI was still pending at the time of shift change. Due to change of shift, the patient's care was transferred to Lisa Price PA-C. Please refer to her dictation for further details. The patient's care was transferred in stable condition. DIAGNOSIS: Intractable low back pain Radiculopathy of the left lower leg S/p lumbar spine surgery Past Med/Surg History Medical History (Updated 06/07/23 @ 17:57 by Amirah Menendez PA-C) GERD (gastroesophageal reflux disease) well controlled and stable - with Omeprazole PRN Sleep apnea BiPAP Refusal of blood transfusions as patient is Mandaeism Spinal stenosis Surgical History (Updated 06/07/23 @ 17:57 by Amirah Menendez PA-C) History of colonoscopy Hx of LASIK History of wisdom tooth extraction History of esophagogastroduodenoscopy (EGD) Family History Other No family history of adverse response to anesthesia Social History (Updated 06/02/23 @ 05:15 by Carlie Bosch, RODRICK) Smoking Status: Never smoker Second Hand Exposure: No; Do You Dip or Chew Tobacco: No; Hx Alcohol Use: Yes Alcohol type: beer Alcohol type Comment: pt states he no longer drinks Hx Substance Use: Yes (patient states he no longer uses ) Prescribed Medications: Marijuana Preferred Language: Afghan Communication Ability: Effective Coal Grader Required: No Beliefs That Will Affect Care: Orthodoxy Orthodoxy Beliefs: Mandaeism - no blood products Current Living Situation: Spouse Feels Safe at Home: Yes Assistive Devices: BiPap and Cane Allergies Allergies Allergy/AdvReac Type Severity Reaction Status Date / Time Penicillins Allergy Hives Verified 06/01/23 05:52 Home Meds Home Medications Medication Instructions Recorded Confirmed acetaminophen 500 mg tablet 1,000 mg PO Q6H PRN Pain 05/01/23 06/07/23 fexofenadine 180 mg tablet 180 mg PO QAM 05/01/23 06/07/23 omeprazole 20 mg tablet,delayed 20 mg PO DAILY gerd 05/01/23 06/07/23 release methylprednisolone 4 mg tablets in 4 mg PO UD 06/07/23 06/07/23 a dose pack Previous Rx's Medication Instructions Recorded oxycodone 5 mg tablet 5 mg PO Q6H PRN pain #30 tabs 06/04/23 tramadol 50 mg tablet 50 mg PO Q6H PRN pain, moderate 06/04/23 #30 tabs Results & Data (ED) Vital Signs Vital Signs - 24 hr 06/06/23 22:05 06/07/23 03:30 06/07/23 05:22 Temperature 36.3 C L 36.6 C Temperature Source Temporal Artery Scan Temporal Artery Scan Pulse Rate 81 Pulse Rate [Left Radial] 75 74 Respiratory Rate 16 16 16 Blood Pressure 156/79 H Blood Pressure [Right Arm] 136/75 132/54 L Blood Pressure Mean 104 Blood Pressure Mean [Right Arm] 95 80 Pulse Oximetry 97 97 97 Oxygen Delivery Method Room Air Room Air Room Air Sepsis Recent Fever Within 48 Hours No Sepsis New/Unexplained Change in Mental Status No Sepsis Action Taken by Nursing No Action Required Laboratory Data 06/07/23 00:15 06/07/23 00:15 Lab Results 06/07/23 Range/Units 00:15 WBC 13.41 H (4.8-10.8) K/ul RBC 4.96 (4.70-6.10) M/uL Hgb 14.3 (14.0-18.0) g/dl Hct 42.7 (42.0-52.0) % MCV 86.1 (80.0-100.0) fL MCH 28.8 (25.0-34.0) pg MCHC 33.5 (32.0-36.0) g/dL RDW Std Deviation 38.6 (36.4-46.3) fL RDW Coeff of Win 12.4 (11.5-14.5) % Plt Count 261 (130-400) K/uL MPV 9.2 L (9.4-12.4) fL Immature Gran % (Auto) 2.2 % Neut % (Auto) 77.7 % Lymph % (Auto) 10.8 % [place] % (Auto) 8.2 % Eos % (Auto) 0.4 % Baso % (Auto) 0.7 % Neut # (Auto) 10.42 H (1.40-6.50) K/uL Lymph # (Auto) 1.45 (1.20-3.40) K/uL [place] # (Auto) 1.10 H (0.11-0.59) K/uL Eos # (Auto) 0.05 (0.00-0.50) K/uL Baso # (Auto) 0.09 (0.00-0.20) K/uL Immature Gran # (Auto) 0.30 H (0.01-0.20) K/uL Sodium 134 L (136-145) mmol/L Potassium 4.5 (3.5-5.1) mmol/L Chloride 97 L (98-107) mmol/L Carbon Dioxide 30 (21-32) mmol/L Anion Gap 7 (3-11) BUN 17 (6-23) mg/dl Creatinine 1.00 (0.6-1.4) mg/dl Est Cr Clr Drug Dosing Not Reportable Est GFR ( Amer) 93.7 ml/min Est GFR (Non-Af Amer) 80.9 ml/min BUN/Creatinine Ratio 17.0 (10-20) Glucose 121 H (70-99(Fasting)) mg/dl Calcium 9.3 (8.6-10.3) mg/dl Total Bilirubin 0.7 (0.2-1.0) mg/dl AST 26 (13-39) U/L ALT 21 (7-52) U/L Alkaline Phosphatase 83 (34-104) U/L Total Protein 7.4 (6.0-8.3) gm/dl Albumin 4.3 (3.4-5.0) gm/dl Globulin 3.1 (2.5-4.0) gm/dl Albumin/Globulin Ratio 1.4 (0.9-2) Administered Medications Fexofenadine HCl (Fexofenadine Hcl 180 Mg Tab) 180 mg PO QAWW [facility] Stop: 07/07/23 08:59 Last Admin: 06/07/23 09:06 Dose: 180 mg Documented By: WILFRIDO Gabapentin (Gabapentin 300 Mg Cap) 300 mg PO TID [facility] Stop: 07/07/23 13:59 Last Admin: 06/07/23 17:37 Dose: 300 mg Documented By: MARCELLO Dexamethasone 6 mg/ Syringe 1.5 mls @ 1 mls/min IV Q8H [facility] Stop: 07/07/23 09:59 Last Admin: 06/07/23 10:20 Dose: 1 mls/min Documented By: WILFRIDO Oxycodone HCl (Oxycodone Hcl Ir 5 Mg Tab (Immediate Release)) 5 mg PO Q4H PRN PRN Reason: Moderate Pain (Scale 4, 5, 6) Stop: 06/21/23 06:21 Last Admin: 06/07/23 15:23 Dose: 5 mg Documented By: MARCELLO Pantoprazole Sodium (Pantoprazole 40 Mg Tab) 40 mg PO QAM [facility] Stop: 07/07/23 08:59 Last Admin: 06/07/23 09:07 Dose: 40 mg Documented By: WILFRIDO Discontinued Medications Dexamethasone Sodium Phosphate (DexamethasonePf 10 Mg/Ml Vial) 10 mg IV NOW ONE Stop: 06/07/23 01:37 Last Admin: 06/07/23 02:09 Dose: 10 mg Documented By: BETSY Gabapentin (Gabapentin 100 Mg Cap) 100 mg PO TID [facility] Stop: 07/07/23 05:59 Last Admin: 06/07/23 06:57 Dose: 100 mg Documented By: YG Gabapentin (Gabapentin 100 Mg Cap) 200 mg PO ONE ONE Stop: 06/07/23 09:01 Last Admin: 06/07/23 09:42 Dose: 200 mg Documented By: WILFRIDO Hydromorphone HCl (Hydromorphone Inj 0.5 Mg/0.5 Ml Syr) 0.5 mg IV NOW STA Stop: 06/07/23 00:46 Last Admin: 06/07/23 01:03 Dose: 0.5 mg Documented By: BETSY Hydromorphone HCl (Hydromorphone Inj 0.5 Mg/0.5 Ml Syr) 0.5 mg IV NOW STA Stop: 06/07/23 01:37 Last Admin: 06/07/23 02:13 Dose: 0.5 mg Documented By: BETSY Sodium Chloride (Nss) 500 mls @ 999 mls/hr IV .Q31M ONE Stop: 06/07/23 00:32 Last Infusion: 06/07/23 00:55 Dose: Infused Documented By: Admin: 06/07/23 00:22 Dose: 999 mls/hr Documented By: BETSY Morphine Sulfate (Morphine Sulfate 4 Mg/Ml 1 Ml Carp\\Vial) 4 mg IV NOW STA Stop: 06/07/23 00:03 Last Admin: 06/07/23 00:25 Dose: 4 mg Documented By: BETSY Ondansetron HCl (Ondansetron Inj 2 Mg/Ml 2 Ml Vial) 4 mg IV NOW STA Stop: 06/07/23 00:03 Last Admin: 06/07/23 00:23 Dose: 4 mg Documented By: BETSY Discharge Plan Visit Data Chief Complaint: Back Injury/Pain Stated Complaint: LUMBAR FUSION, BACK PAIN, TROUBLE WALKING ED Provider: Aj Barbour ED Midlevel Provider: Lisa Price Discharge Problem: Intractable low back pain, Lumbar back pain with radiculopathy affecting left lower extremity, Status post lumbar spine surgery for decompression of spinal cord Patient Disposition: Admitted As Inpatient Condition: Good Discharge Instructions Interventions: ED Discharge Assessment Last Done: 06/07/23 06:22
[2023-06-07] MEDS ORDERED: ONDANSETRON INJ 2 MG/ML 2 ML VIAL IV STA (00:02)
[2023-06-07] MEDS ORDERED: SODIUM CHLORIDE 0.9% 500 ML IV ONE (00:02)
[2023-06-07] MEDS ORDERED: MoRPHine SULFATE 4 MG/ML 1 ML CARP\\VIAL IV STA (00:02)
[2023-06-07 00:44] LABS: Basophils # (auto) 0.09 K/uL (0.00-0.20); Basophils % (auto) 0.7 %; Eosinophils # (auto) 0.05 K/uL (0.00-0.50); Eosinophils % (auto) 0.4 %; Hematocrit (blood only) 42.7 % (42.0-52.0); Hemoglobin 14.3 g/dl (14.0-18.0); Immature Granulocytes % (auto) 2.2 %; Lymphocytes # (auto) 1.45 K/uL (1.20-3.40); Lymphocytes % (auto) 10.8 %; Mean Corpuscular Hemoglobin 28.8 pg (25.0-34.0); Mean Corpuscular Hgb Conc 33.5 g/dL (32.0-36.0); Mean Corpuscular Volume 86.1 fL (80.0-100.0); Mean Platelet Volume 9.2 fL (9.4-12.4); Monocytes % (auto) 8.2 %; Neutrophils # (auto) 10.42 K/uL (1.40-6.50); Neutrophils % (auto) 77.7 %; Platelet Count 261 K/uL (130-400); RDW Coefficient of Variation 12.4 % (11.5-14.5); RDW Standard Deviation 38.6 fL (36.4-46.3); Red Blood Count 4.96 M/uL (4.70-6.10); White Blood Count 13.41 K/ul (4.8-10.8)
[2023-06-07] MEDS ORDERED: HYDROmorphone INJ 0.5 MG/0.5 ML SYR IV STA ×2 (00:45→01:36)
[2023-06-07 00:59] LABS: Alanine Aminotransferase 21 U/L (7-52); Albumin Globulin Ratio 1.4 (0.9-2); Albumin Level 4.3 gm/dl (3.4-5.0); Alkaline Phosphatase 83 U/L (34-104); Anion Gap 7 (3-11); Aspartate Aminotransferase 26 U/L (13-39); Bilirubin,Total 0.7 mg/dl (0.2-1.0); Blood Urea Nitrogen 17 mg/dl (6-23); Calcium 9.3 mg/dl (8.6-10.3); Carbon Dioxide 30 mmol/L (21-32); Chloride 97 mmol/L (98-107); Est GFR (African American) 93.7 ml/min; Est GFR (Non-African American) 80.9 ml/min; Globulin 3.1 gm/dl (2.5-4.0); Glucose 121 mg/dl (70-99(Fasting)); Potassium 4.5 mmol/L (3.5-5.1); Sodium 134 mmol/L (136-145); Total Protein 7.4 gm/dl (6.0-8.3)
[2023-06-07] MEDS ORDERED: dexAMETHasone**PF** 10 MG/ML VIAL IV ONE (01:36)
--- NOTE | 2023-06-07 04:52 | Magnetic Resonance Report ---
Exam(s): MRI L SPINE Without Contrast EXAM: MR Lumbar Spine Without Intravenous Contrast CLINICAL HISTORY: Reason for exam: Back pain, left leg paresthesias, recent surgery. TECHNIQUE: Magnetic resonance images of the lumbar spine without intravenous contrast in multiple planes. COMPARISON: No relevant prior studies available. FINDINGS: Vertebrae: There are 5 lumbar type vertebral bodies with a mild levoscoliosis and shallow lumbar lordosis. There is normal vertebral body height and alignment. Patient is status post posterior decompression and fusion of L2-L5 with transpedicular screws connecting rods in place. There is a dorsal epidural fluid collection at L2, L3 and L4, which most likely represents a postsurgical seroma or resolving hematoma, less likely a pseudomeningocele. No acute fracture. Spinal cord: Unremarkable. Normal signal. Soft tissues: Mild atrophy of the ileus, paraspinous and intraspinous musculature. The aorta and IVC flow voids are intact. The visualized kidneys are unremarkable. DISCS/SPINAL CANAL/NEURAL FORAMINA: L1-L2: There is mild disc degeneration with annular disc bulge flattening the ventral thecal sac. There is mild facet arthropathy with mild synovitis. L2-L3: Advanced disc degeneration with annular disc bulge flattening the ventral thecal sac, with disc and osteophyte extend into the neural foramina causing mild right stenosis without evidence of neural impingement. L3-L4: There is a metallic intervertebral body fusion device in place with residual posterior disc osteophyte complex causing mild subarticular recess stenosis with superimposed dorsal epidural fluid collection mild bilateral L3-4, causing a moderately severe spinal canal stenosis with thecal sac terminating 0.57 cm. There is disc and osteophyte extend into the neural foramina causing mild bilateral stenosis without evidence of neural impingement. L4-L5: There is metallic intervertebral body spacer with residual annular disc bulge asymmetric to the left causing a mild left subarticular recess stenosis and a moderate spinal canal stenosis with thecal sac measuring 0.74 cm. There is disc and osteophyte extend to the neural foramina causing mild right and moderately severe left stenosis with impingement of left L4 nerve root ganglion. L5-S1: There is mild disc degeneration with annular disc bulge causing mild subarticular recess stenosis, or disc extend into the neural foramina causing a mild right and moderate left stenosis with mild pressure on the left L5 nerve root ganglion. There is mild facet arthropathy with mild synovitis. IMPRESSION: 1. Advanced disc degeneration at L2-3 with mild disc degeneration at L1- L2 and L5-S1 with annular disc bulging flattening the ventral thecal sac and causing a mild subarticular recess stenosis at L5-S1. There is a mild subarticular recess stenosis at L3-4 and L4-5. 2. There is a moderately severe spinal canal stenosis at L4-5. 3. There is a mild right L2-3, mild bilateral L3-4, mild right and moderately severe left L4-5 and mild right and moderate left L5-S1 neuroforaminal stenosis with impingement of the left L4 and L5 nerve root ganglia. 4. There is mild to moderate facet arthropathy at L1-L2 and L5-S1. 5. Status post posterior decompression and posterior interbody fusion of L2-L5 with dorsal epidural fluid collection extending from L2-L4, which may represent a postsurgical seroma, resolving hematoma or less likely pseudomeningocele with significant mass-effect on the dorsal thecal sac. 6. No evidence of fracture, infection, tumor or arachnoiditis. Electronically signed by: Cinthia Corey MD 06/07/23 04:51 AM
--- NOTE | 2023-06-07 05:41 | History & Physical Report ---
Date of Service June 07, 2023 Assessment & Plan (1) Intractable low back pain: (2) Lumbar back pain with radiculopathy affecting left lower extremity: (3) Status post lumbar spine surgery for decompression of spinal cord: (4) Neurogenic claudication due to lumbar spinal stenosis: (5) GERD (gastroesophageal reflux disease): (6) Sleep apnea: Plan Intractable low back pain status post lumbar surgery with left lower extremity radiculopathy- Patient reports the original discomfort he had in his right low back and into the buttock area has resolved since the surgery He failed outpatient treatment with Medrol Dosepak, tramadol and oxycodone Acetaminophen 1000 mg p.o. every 6 hours as needed for mild pain or fever Oxycodone 5 mg by mouth every 4 hours as needed for moderate pain Dilaudid 0.5 mg IV every 3 hours as needed for severe pain Received dexamethasone 10 mg IV from the ED Continue dexamethasone 6 mg IV every 8 hours Add gabapentin 100 mg p.o. 3 times daily with first dose now Consult to orthopedic spine surgery Dr. Snowden GERD- Change omeprazole to pantoprazole per formulary interchange History of Present Illness Chief Complaint: Patient presents to the emergency department with intractable low back pain, having had recent surgery on 06/01/[address] Ha Snowden. Primary Care Provider: López Julien DO The patient is a 62-year-old male with a past medical history including allergic rhinitis, GERD and recently underwent lumbar spinal surgery due to injury sustained in an accident many years ago. Patient reports that his pain that he had on the right side is gone since he had the surgery, however, he has been having significant pain in his left sacroiliac area across his buttock and down his left leg toward his foot since that time. He called Dr. Snowden's office, and reportedly got a Medrol Dosepak called in, and he was trying to take tramadol for mild pain and oxycodone for severe pain, however, his pain was so bad he had come to the ED this evening. The patient is referred to the [facility] hospitalist service for help and pain management, and with consult to be made to Dr. Snowden orthopedic spine surgery Allergies Allergy/AdvReac Type Severity Reaction Status Date / Time Penicillins Allergy Hives Verified 06/01/23 05:52 Home Medications Medication Instructions Recorded Confirmed Type acetaminophen 500 mg tablet 1,000 mg PO Q6H PRN Pain 05/01/23 06/07/23 History fexofenadine 180 mg tablet 180 mg PO QAM 05/01/23 06/07/23 History omeprazole 20 mg tablet,delayed 20 mg PO DAILY gerd 05/01/23 06/07/23 History release oxycodone 5 mg tablet 5 mg PO Q6H PRN pain #30 tabs 06/04/23 06/07/23 Rx tramadol 50 mg tablet 50 mg PO Q6H PRN pain, moderate 06/04/23 06/07/23 Rx #30 tabs methylprednisolone 4 mg tablets in 4 mg PO UD 06/07/23 06/07/23 History a dose pack Past Med/Surg History Medical History (Updated 06/07/23 @ 06:51 by Álvaro Rivas MD) GERD (gastroesophageal reflux disease) well controlled and stable - with Omeprazole PRN Sleep apnea BiPAP Refusal of blood transfusions as patient is Yazidi Spinal stenosis Surgical History (Updated 06/01/23 @ 15:05 by Kevin Wilhelm PA-C) History of colonoscopy Hx of LASIK History of wisdom tooth extraction History of esophagogastroduodenoscopy (EGD) Family History Other No family history of adverse response to anesthesia Social History (Updated 06/02/23 @ 05:15 by Carlie Bosch, RODRICK) Smoking Status: Never smoker Second Hand Exposure: No; Do You Dip or Chew Tobacco: No; Hx Alcohol Use: Yes Alcohol type: beer Alcohol type Comment: pt states he no longer drinks Hx Substance Use: Yes (patient states he no longer uses ) Prescribed Medications: Marijuana Preferred Language: Trinidadian Communication Ability: Effective Stain Sprayer Required: No Beliefs That Will Affect Care: Mormon Mormon Beliefs: Yazidi - no blood products Current Living Situation: Spouse Feels Safe at Home: Yes Assistive Devices: BiPap and Cane Review of Systems Review of Systems: The patient denies chest pain, palpitations, shortness of breath, dyspnea on exertion, cough, lower extremity swelling, sore throat, fevers, chills, sweats, weight change, fatigue, nausea, vomiting, diarrhea , constipation, abdominal pain, pelvic pain, blood in urine or stool, dysuria, urinary frequency or urgency, lightheadedness, dizziness, headache, memory loss, loss of consciousness, rash, abnormal bruising or bleeding, focal or generalized weakness, numbness or tingling in arms, generalized arthralgias or myalgias, neck pain, or night sweats. The review of systems is otherwise negative other than for that already noted above, and at least 10 systems have been reviewed. Physical Exam Physical Exam: The patient is awake, alert and oriented 3, well developed and well nourished, normocephalic and atraumatic, lying in bed and in mild to moderate distress due to low back pain and LLE radiculopathy HEENT--PERRL, EOMI, mucous membranes and oropharynx normal Neck--supple. No JVD. No bruits. Thyroid normal, trachea midline, no adenopathy. Heart--normal S1 and S2. No murmurs, rubs or gallops. Lungs--clear bilaterally, no respiratory distress, no accessory muscle use. Abdomen--normal bowel sounds and soft. Nontender. Nondistended, no hernias or masses, no organomegaly. Extremities--no cyanosis or clubbing. No edema. There are good distal pulses b/l. Dermatologic--normal skin turgor, normal color, no abnormal lymph nodes, no rash. Neurologic--cranial nerves II through XII grossly intact. Rheumatologic--limited exam due to pain. Psychiatric--normal affect. Results & Data Results & Data Vital Signs (Past 12 Hours) Vital Signs Temp Pulse Pulse Resp BP BP Pulse Ox 06/07/23 05:22 74 16 132/54 L 97 06/07/23 03:30 36.6 C 75 16 136/75 97 06/06/23 22:05 36.3 C L 81 16 156/79 H 97 O2 Del Method 06/07/23 05:22 Room Air 06/07/23 03:30 Room Air 06/06/23 22:05 Room Air Laboratory Results Laboratory Results WBC 13.41 K/ul (4.8-10.8) H 06/07/23 00:15 RBC 4.96 M/uL (4.70-6.10) 06/07/23 00:15 Hgb 14.3 g/dl (14.0-18.0) 06/07/23 00:15 Hct 42.7 % (42.0-52.0) 06/07/23 00:15 MCV 86.1 fL (80.0-100.0) 06/07/23 00:15 MCH 28.8 pg (25.0-34.0) 06/07/23 00:15 MCHC 33.5 g/dL (32.0-36.0) 06/07/23 00:15 RDW Std Deviation 38.6 fL (36.4-46.3) 06/07/23 00:15 RDW Coeff of Win 12.4 % (11.5-14.5) 06/07/23 00:15 Plt Count 261 K/uL (130-400) 06/07/23 00:15 MPV 9.2 fL (9.4-12.4) L 06/07/23 00:15 Immature Gran % (Auto) 2.2 % 06/07/23 00:15 Neut % (Auto) 77.7 % 06/07/23 00:15 Lymph % (Auto) 10.8 % 06/07/23 00:15 [place] % (Auto) 8.2 % 06/07/23 00:15 Eos % (Auto) 0.4 % 06/07/23 00:15 Baso % (Auto) 0.7 % 06/07/23 00:15 Neut # (Auto) 10.42 K/uL (1.40-6.50) H 06/07/23 00:15 Lymph # (Auto) 1.45 K/uL (1.20-3.40) 06/07/23 00:15 [place] # (Auto) 1.10 K/uL (0.11-0.59) H 06/07/23 00:15 Eos # (Auto) 0.05 K/uL (0.00-0.50) 06/07/23 00:15 Baso # (Auto) 0.09 K/uL (0.00-0.20) 06/07/23 00:15 Immature Gran # (Auto) 0.30 K/uL (0.01-0.20) H 06/07/23 00:15 Sodium 134 mmol/L (136-145) L 06/07/23 00:15 Potassium 4.5 mmol/L (3.5-5.1) 06/07/23 00:15 Chloride 97 mmol/L (98-107) L 06/07/23 00:15 Carbon Dioxide 30 mmol/L (21-32) 06/07/23 00:15 Anion Gap 7 (3-11) 06/07/23 00:15 BUN 17 mg/dl (6-23) 06/07/23 00:15 Creatinine 1.00 mg/dl (0.6-1.4) 06/07/23 00:15 Est Cr Clr Drug Dosing Not Reportable 06/07/23 00:15 Est GFR ( Amer) 93.7 ml/min 06/07/23 00:15 Est GFR (Non-Af Amer) 80.9 ml/min 06/07/23 00:15 BUN/Creatinine Ratio 17.0 (10-20) 06/07/23 00:15 Glucose 121 mg/dl (70-99(Fasting)) H 06/07/23 00:15 Calcium 9.3 mg/dl (8.6-10.3) 06/07/23 00:15 Total Bilirubin 0.7 mg/dl (0.2-1.0) 06/07/23 00:15 AST 26 U/L (13-39) 06/07/23 00:15 ALT 21 U/L (7-52) 06/07/23 00:15 Alkaline Phosphatase 83 U/L (34-104) 06/07/23 00:15 Total Protein 7.4 gm/dl (6.0-8.3) 06/07/23 00:15 Albumin 4.3 gm/dl (3.4-5.0) 06/07/23 00:15 Globulin 3.1 gm/dl (2.5-4.0) 06/07/23 00:15 Albumin/Globulin Ratio 1.4 (0.9-2) 06/07/23 00:15 Impressions Lumbar Spine MRI 06/07/23 02:00 Exam(s): MRI L SPINE Without Contrast EXAM: MR Lumbar Spine Without Intravenous Contrast CLINICAL HISTORY: Reason for exam: Back pain, left leg paresthesias, recent surgery. TECHNIQUE: Magnetic resonance images of the lumbar spine without intravenous contrast in multiple planes. COMPARISON: No relevant prior studies available. FINDINGS: Vertebrae: There are 5 lumbar type vertebral bodies with a mild levoscoliosis and shallow lumbar lordosis. There is normal vertebral body height and alignment. Patient is status post posterior decompression and fusion of L2-L5 with transpedicular screws connecting rods in place. There is a dorsal epidural fluid collection at L2, L3 and L4, which most likely represents a postsurgical seroma or resolving hematoma, less likely a pseudomeningocele. No acute fracture. Spinal cord: Unremarkable. Normal signal. Soft tissues: Mild atrophy of the ileus, paraspinous and intraspinous musculature. The aorta and IVC flow voids are intact. The visualized kidneys are unremarkable. DISCS/SPINAL CANAL/NEURAL FORAMINA: L1-L2: There is mild disc degeneration with annular disc bulge flattening the ventral thecal sac. There is mild facet arthropathy with mild synovitis. L2-L3: Advanced disc degeneration with annular disc bulge flattening the ventral thecal sac, with disc and osteophyte extend into the neural foramina causing mild right stenosis without evidence of neural impingement. L3-L4: There is a metallic intervertebral body fusion device in place with residual posterior disc osteophyte complex causing mild subarticular recess stenosis with superimposed dorsal epidural fluid collection mild bilateral L3-4, causing a moderately severe spinal canal stenosis with thecal sac terminating 0.57 cm. There is disc and osteophyte extend into the neural foramina causing mild bilateral stenosis without evidence of neural impingement. L4-L5: There is metallic intervertebral body spacer with residual annular disc bulge asymmetric to the left causing a mild left subarticular recess stenosis and a moderate spinal canal stenosis with thecal sac measuring 0.74 cm. There is disc and osteophyte extend to the neural foramina causing mild right and moderately severe left stenosis with impingement of left L4 nerve root ganglion. L5-S1: There is mild disc degeneration with annular disc bulge causing mild subarticular recess stenosis, or disc extend into the neural foramina causing a mild right and moderate left stenosis with mild pressure on the left L5 nerve root ganglion. There is mild facet arthropathy with mild synovitis. IMPRESSION: 1. Advanced disc degeneration at L2-3 with mild disc degeneration at L1- L2 and L5-S1 with annular disc bulging flattening the ventral thecal sac and causing a mild subarticular recess stenosis at L5-S1. There is a mild subarticular recess stenosis at L3-4 and L4-5. 2. There is a moderately severe spinal canal stenosis at L4-5. 3. There is a mild right L2-3, mild bilateral L3-4, mild right and moderately severe left L4-5 and mild right and moderate left L5-S1 neuroforaminal stenosis with impingement of the left L4 and L5 nerve root ganglia. 4. There is mild to moderate facet arthropathy at L1-L2 and L5-S1. 5. Status post posterior decompression and posterior interbody fusion of L2-L5 with dorsal epidural fluid collection extending from L2-L4, which may represent a postsurgical seroma, resolving hematoma or less likely pseudomeningocele with significant mass-effect on the dorsal thecal sac. 6. No evidence of fracture, infection, tumor or arachnoiditis. Electronically signed by: Cinthia Corey MD 06/07/23 04:51 AM Code Status & VTE Plan Code Status Full code VTE Prophylaxis Plan VTE Prophylaxis will be ordered: Yes PG Care Time/CCT Total # of Minutes Spent Total Time Spent with Patient: Total time spent is greater than 50% in coordination of care (as documented) at patient's floor/unit and/or counseling patient: Coding Level of Care Code 15691 INT INP/OBS CARE 3/75MIN Diagnoses Intractable low back pain M54.59 Lumbar back pain with radiculopathy affecting left lower extremity M54.16 Status post lumbar spine surgery for decompression of spinal cord Z98.890 Neurogenic claudication due to lumbar spinal stenosis M48.062 GERD (gastroesophageal reflux disease) K21.9 Sleep apnea G47.30
[2023-06-07] MEDS ORDERED: GABAPENTIN 100 MG CAP PO SCH (06:00)
[2023-06-07] MEDS ORDERED: ONDANSETRON INJ 2 MG/ML 2 ML VIAL IV PRN (06:22)
--- NOTE | 2023-06-07 06:25 | Emergency Department Note ---
ED Visit Note I received the patient in signout from Amirah Menendez PA-C pending MRI and probable admission. I did not see this patient. MRI was reviewed as below. Dr. Rivas was aware of this patient. He has already reviewed the case and agreed to admission. He plans on seeing the patient for admission now that MRI has resulted. Please see his dictation regarding ongoing management care of this patient. RADIOLOGY: Exam(s): MRI L SPINE Without Contrast EXAM: MR Lumbar Spine Without Intravenous Contrast CLINICAL HISTORY: Reason for exam: Back pain, left leg paresthesias, recent surgery. TECHNIQUE: Magnetic resonance images of the lumbar spine without intravenous contrast in multiple planes. COMPARISON: No relevant prior studies available. FINDINGS: Vertebrae: There are 5 lumbar type vertebral bodies with a mild levoscoliosis and shallow lumbar lordosis. There is normal vertebral body height and alignment. Patient is status post posterior decompression and fusion of L2-L5 with transpedicular screws connecting rods in place. There is a dorsal epidural fluid collection at L2, L3 and L4, which most likely represents a postsurgical seroma or resolving hematoma, less likely a pseudomeningocele. No acute fracture. Spinal cord: Unremarkable. Normal signal. Soft tissues: Mild atrophy of the ileus, paraspinous and intraspinous musculature. The aorta and IVC flow voids are intact. The visualized kidneys are unremarkable. DISCS/SPINAL CANAL/NEURAL FORAMINA: L1-L2: There is mild disc degeneration with annular disc bulge flattening the ventral thecal sac. There is mild facet arthropathy with mild synovitis. L2-L3: Advanced disc degeneration with annular disc bulge flattening the ventral thecal sac, with disc and osteophyte extend into the neural foramina causing mild right stenosis without evidence of neural impingement. L3-L4: There is a metallic intervertebral body fusion device in place with residual posterior disc osteophyte complex causing mild subarticular recess stenosis with superimposed dorsal epidural fluid collection mild bilateral L3-4, causing a moderately severe spinal canal stenosis with thecal sac terminating 0.57 cm. There is disc and osteophyte extend into the neural foramina causing mild bilateral stenosis without evidence of neural impingement. L4-L5: There is metallic intervertebral body spacer with residual annular disc bulge asymmetric to the left causing a mild left subarticular recess stenosis and a moderate spinal canal stenosis with thecal sac measuring 0.74 cm. There is disc and osteophyte extend to the neural foramina causing mild right and moderately severe left stenosis with impingement of left L4 nerve root ganglion. L5-S1: There is mild disc degeneration with annular disc bulge causing mild subarticular recess stenosis, or disc extend into the neural foramina causing a mild right and moderate left stenosis with mild pressure on the left L5 nerve root ganglion. There is mild facet arthropathy with mild synovitis. IMPRESSION: 1. Advanced disc degeneration at L2-3 with mild disc degeneration at L1- L2 and L5-S1 with annular disc bulging flattening the ventral thecal sac and causing a mild subarticular recess stenosis at L5-S1. There is a mild subarticular recess stenosis at L3-4 and L4-5. 2. There is a moderately severe spinal canal stenosis at L4-5. 3. There is a mild right L2-3, mild bilateral L3-4, mild right and moderately severe left L4-5 and mild right and moderate left L5-S1 neuroforaminal stenosis with impingement of the left L4 and L5 nerve root ganglia. 4. There is mild to moderate facet arthropathy at L1-L2 and L5-S1. 5. Status post posterior decompression and posterior interbody fusion of L2-L5 with dorsal epidural fluid collection extending from L2-L4, which may represent a postsurgical seroma, resolving hematoma or less likely pseudomeningocele with significant mass-effect on the dorsal thecal sac. 6. No evidence of fracture, infection, tumor or arachnoiditis. Electronically signed by: Cinthia Corey MD 06/07/23 04:51 AM Dictated: 06/07/23 0451 Transcribed: 06/07/23 0451
--- NOTE | 2023-06-07 08:37 | Orthopedic Consultation ---
Date of Consultation June 07, 2023 Assessment & Plan (1) Status post lumbar spine surgery for decompression of spinal cord: MRI lumbar spine demonstrates normal postoperative change with epidural seroma. I will obtain additional x-rays today. We will attempt ambulation today. Will make him n.p.o. after midnight in the event we have to proceed with an I&D. I suspect this would be unnecessary at this time. History of Present Illness Reason for Consultation: Back pain Attending Physician: Forrest Ott MD History of Present Illness This is a 62-year-old male known to me status post multilevel lumbar decompression fusion. Since last night to the emergency room with back and left leg pain. This morning he is noting improvement with the IV medications. He has no right lower extremity pain denies any weakness. Denies any loss of bowel or bladder function paresthesias. Allergies Allergy/AdvReac Type Severity Reaction Status Date / Time Penicillins Allergy Hives Verified 06/01/23 05:52 Home Medications Medication Instructions Recorded Confirmed Type acetaminophen 500 mg tablet 1,000 mg PO Q6H PRN Pain 05/01/23 06/07/23 History fexofenadine 180 mg tablet 180 mg PO QAM 05/01/23 06/07/23 History omeprazole 20 mg tablet,delayed 20 mg PO DAILY gerd 05/01/23 06/07/23 History release oxycodone 5 mg tablet 5 mg PO Q6H PRN pain #30 tabs 06/04/23 06/07/23 Rx tramadol 50 mg tablet 50 mg PO Q6H PRN pain, moderate 06/04/23 06/07/23 Rx #30 tabs methylprednisolone 4 mg tablets in 4 mg PO UD 06/07/23 06/07/23 History a dose pack Patient History Medical History (Updated 06/07/23 @ 06:51 by Álvaro Rivas MD) GERD (gastroesophageal reflux disease) well controlled and stable - with Omeprazole PRN Sleep apnea BiPAP Refusal of blood transfusions as patient is Adventism Spinal stenosis Surgical History (Updated 06/01/23 @ 15:05 by Kevin Wilhelm PA-C) History of colonoscopy Hx of LASIK History of wisdom tooth extraction History of esophagogastroduodenoscopy (EGD) Family History Other No family history of adverse response to anesthesia Social History (Updated 06/02/23 @ 05:15 by Carlie Bosch, RODRICK) Smoking Status: Never smoker Second Hand Exposure: No; Do You Dip or Chew Tobacco: No; Hx Alcohol Use: Yes Alcohol type: beer Alcohol type Comment: pt states he no longer drinks Hx Substance Use: Yes (patient states he no longer uses ) Prescribed Medications: Marijuana Preferred Language: Vincentian Communication Ability: Effective Graphic Art Technician Required: No Beliefs That Will Affect Care: Anglican Anglican Beliefs: Adventism - no blood products Current Living Situation: Spouse Feels Safe at Home: Yes Assistive Devices: BiPap and Cane Physical Exam Physical Exam: On exam he is very comfortable right now. Discussed with testing lower extr emities. There is no tenderness palpation of the trochanteric IT band region. There is no sciatic notch tenderness. Results & Data Vital Signs (Past 12 Hours) Vital Signs Temp Pulse Pulse Resp BP BP Pulse Ox 06/07/23 05:22 74 16 132/54 L 97 06/07/23 03:30 36.6 C 75 16 136/75 97 06/06/23 22:05 36.3 C L 81 16 156/79 H 97 O2 Del Method 06/07/23 05:22 Room Air 06/07/23 03:30 Room Air 06/06/23 22:05 Room Air
[2023-06-07] MEDS ORDERED: GABAPENTIN 100 MG CAP PO ONE (09:00)
[2023-06-07] MEDS: FEXOFENADINE HCL 180 MG TAB PO SCH (09:06)
[2023-06-07] MEDS: PANTOprazole 40 MG TAB PO SCH (09:07)
[2023-06-07] MEDS: dexAMETHasone 6 MG in SYRINGE 0 ML IV SCH ×2 (10:20→19:59)
--- NOTE | 2023-06-07 14:39 | XRay Report ---
XR lumbar spine 2-3V CLINICAL HISTORY: Postop x-rays COMPARISON STUDY: Lumbar spine fluoroscopic images June 11, 2023. Lumbar spine MRI performed jessica ier today. FINDINGS: There is mild levoscoliosis. L3-L4 and L4-L5 discectomies with interbody spacer placement. Posterior decompression with L2-L5 pedicle screw fusion. Hardware is intact. There are no lumbar spin e fractures. Endplate osteophytosis is present. Sacroiliac joints are intact. No unexpected radiopaqu e foreign bodies IMPRESSION: 1. Status post L2-L5 decompression and fusion with L3-L4 and L4-L5 discectomies. Hardware intact. 2. No lumbar spine fractures. ACT 112: Negative or not required by law. Electronically signed by: Glen Whaley M.D. 06/07/2023 2:38 PM
[2023-06-07] MEDS: oxyCODONE HCL IR 5 MG TAB (IMMEDIATE RELEASE) PO PRN (15:23)
--- NOTE | 2023-06-07 17:04 | Communication Note ---
Date of Service: June 07, 2023 Please refer to the H&P dictated by Dr. Álvaro Sood earlier this morning for details of presentation on admission. In brief, patient had a recent lumbar surgery by Dr. Snowden on 06/01. Postoperatively, he felt good on the right side. However he started having significant pain in the left sacroiliac area across his buttock and down his left leg. He failed Medrol pack outpatient and thus presented to the emergency room. He was seen in consultation by Dr. Snowden today. We are treating him with IV Decadron, IV Dilaudid and gabapentin. He is kept n.p.o. in case he needs to go to the OR tomorrow. Will monitor for improvement.
[2023-06-07] MEDS: GABAPENTIN 300 MG CAP PO SCH ×2 (17:37→19:59)
[2023-06-07] MEDS: HYDROmorphone INJ 0.5 MG/0.5 ML SYR IV PRN ×2 (19:59→23:26)
[2023-06-07] MEDS: ACETAMINOPHEN 500 MG TAB PO PRN (23:44)
[2023-06-08] MEDS: oxyCODONE HCL IR 5 MG TAB (IMMEDIATE RELEASE) PO PRN ×5 (00:25→18:18)
[2023-06-08] MEDS: dexAMETHasone 6 MG in SYRINGE 0 ML IV SCH ×3 (02:25→18:18)
[2023-06-08] MEDS: ACETAMINOPHEN 500 MG TAB PO PRN ×3 (04:00→18:19)
[2023-06-08] MEDS: HYDROmorphone INJ 0.5 MG/0.5 ML SYR IV PRN ×5 (04:02→23:13)
[2023-06-08 07:39] LABS: Basophils # (auto) 0.02 K/uL (0.00-0.20); Basophils % (auto) 0.1 %; Hematocrit (blood only) 35.1 % (42.0-52.0); Hemoglobin 12.2 g/dl (14.0-18.0); Immature Granulocytes # (auto) 0.17 K/uL (0.01-0.20); Immature Granulocytes % (auto) 1.1 %; Lymphocytes # (auto) 1.02 K/uL (1.20-3.40); Lymphocytes % (auto) 6.8 %; Mean Corpuscular Hemoglobin 29.5 pg (25.0-34.0); Mean Corpuscular Hgb Conc 34.8 g/dL (32.0-36.0); Mean Corpuscular Volume 84.8 fL (80.0-100.0); Mean Platelet Volume 9.3 fL (9.4-12.4); Monocytes # (auto) 0.53 K/uL (0.11-0.59); Monocytes % (auto) 3.5 %; Neutrophils # (auto) 13.23 K/uL (1.40-6.50); Neutrophils % (auto) 88.5 %; Platelet Count 244 K/uL (130-400); RDW Coefficient of Variation 12.2 % (11.5-14.5); RDW Standard Deviation 36.7 fL (36.4-46.3); Red Blood Count 4.14 M/uL (4.70-6.10); White Blood Count 14.97 K/ul (4.8-10.8)
[2023-06-08 08:02] LABS: Albumin Level 3.7 gm/dl (3.4-5.0); BUN Creatinine Ratio 28.1 (10-20); Calcium 9.2 mg/dl (8.6-10.3); Creatinine Clr Calc Pharmacy 101.6 ml/min; Est GFR (Non-African American) 92.3 ml/min; Magnesium 2.2 mg/dl (1.7-2.4); Potassium 4.6 mmol/L (3.5-5.1)
[2023-06-08] MEDS: GABAPENTIN 300 MG CAP PO SCH ×3 (10:18→20:59)
[2023-06-08] MEDS: PANTOprazole 40 MG TAB PO SCH (10:18)
[2023-06-08] MEDS: FEXOFENADINE HCL 180 MG TAB PO SCH (10:19)
--- NOTE | 2023-06-08 13:39 | Orthopedic Progress Note ---
Date of Service June 08, 2023 Assessment & Plan (1) Lumbar back pain with radiculopathy affecting left lower extremity: Plan: At this time we will continue physical therapy and pain management. If continues to improve we will most likely allow him to go home tomorrow. Admission and Anticipated Discharge Date Admission Date: June 07, 2023 Subjective Patient feels overall his back and leg symptoms improved. Has been active and ambulating on his own. He is requiring IV pain medications. Physical Exam Physical Exam: On exam is up and ambulating. Demonstrates no tenderness palpation lumbar musculature. Excellent strength testing. Results & Data Vital Signs (Past 12 Hours) Vital Signs Temp Resp BP Pulse Ox O2 Del Method 06/08/23 11:08 36.8 C 18 149/74 H 94 Room Air
--- NOTE | 2023-06-08 17:31 | Hospitalist Progress Note ---
Date of Service June 08, 2023 Assessment & Plan (1) Intractable low back pain: (2) Lumbar back pain with radiculopathy affecting left lower extremity: (3) Status post lumbar spine surgery for decompression of spinal cord: (4) Neurogenic claudication due to lumbar spinal stenosis: (5) GERD (gastroesophageal reflux disease): (6) Sleep apnea: Plan Intractable low back pain status post lumbar surgery with left lower extremity radiculopathy- Patient reports the original discomfort he had in his right low back and into the buttock area has resolved since the surgery He failed outpatient treatment with Medrol Dosepak, tramadol and oxycodone Acetaminophen 1000 mg p.o. every 6 hours as needed for mild pain or fever Increase the dose of oxycodone to 10 mg p.o. every 4 as needed for moderate pain Added OxyContin 10 mg p.o. twice daily Added bowel regimen since he is now going to be on narcotics Continue IV Decadron Continue gabapentin 100 mg p.o. 3 times daily Orthopedic spine surgery involved. No surgery planned GERD- Change omeprazole to pantoprazole per formulary interchange Admission and Anticipated Discharge Date Admission Date: June 07, 2023 Subjective Patient says that his pain is controlled now but he is requiring the IV Dilaudid. He is not comfortable with the discharge plan anytime soon since his pain is not controlled on oral medications Review of Systems Review of Systems: All systems reviewed & are unremarkable except as noted in Subjective Physical Exam Physical Exam: General: Awake, conversant Heart: S1, S2/regular rate and rhythm, no murmur rubs or gallops Lungs: Clear to auscultation bilaterally. Normal effort Abdomen: Soft/nontender/nondistended. No hepatosplenomegaly Extremities: No clubbing/cyanosis. No edema Behavior: Appropriate, cooperative Results & Data Results & Data Vital Signs (Past 12 Hours) Vital Signs Temp Pulse Resp BP Pulse Ox O2 Del Method O2 Flow Rate 06/08/23 15:03 36.7 C 69 18 146/76 H 95 Nasal Cannula 1 06/08/23 11:08 36.8 C 18 149/74 H 94 Room Air PG Care Time/CCT Total # of Minutes Spent Total Time Spent with Patient: Total time spent is greater than 50% in coordination of care (as documented) at patient's floor/unit and/or counseling patient: Coding Level of Care Code 77743 SUB INP/OBS CARE Diagnoses Intractable low back pain M54.59 Lumbar back pain with radiculopathy affecting left lower extremity M54.16 Status post lumbar spine surgery for decompression of spinal cord Z98.890 Neurogenic claudication due to lumbar spinal stenosis M48.062 GERD (gastroesophageal reflux disease) K21.9 Sleep apnea G47.30
[2023-06-08] MEDS: oxyCODONE HCL 10 MG TABCR (OxyCONTIN) PO SCH (20:59)
[2023-06-08] MEDS: DOCUSATE SODIUM 100 MG CAP PO SCH (20:59)
[2023-06-09] MEDS: dexAMETHasone 6 MG in SYRINGE 0 ML IV SCH ×3 (02:01→17:58)
[2023-06-09 06:28] LABS: Basophils # (auto) 0.03 K/uL (0.00-0.20); Basophils % (auto) 0.2 %; Hematocrit (blood only) 40.6 % (42.0-52.0); Hemoglobin 13.3 g/dl (14.0-18.0); Immature Granulocytes # (auto) 0.55 K/uL (0.01-0.20); Immature Granulocytes % (auto) 3.9 %; Lymphocytes # (auto) 1.31 K/uL (1.20-3.40); Lymphocytes % (auto) 9.2 %; Mean Corpuscular Hemoglobin 28.2 pg (25.0-34.0); Mean Corpuscular Hgb Conc 32.8 g/dL (32.0-36.0); Mean Corpuscular Volume 86.2 fL (80.0-100.0); Mean Platelet Volume 9.2 fL (9.4-12.4); Monocytes # (auto) 0.47 K/uL (0.11-0.59); Monocytes % (auto) 3.3 %; Neutrophils # (auto) 11.86 K/uL (1.40-6.50); Neutrophils % (auto) 83.4 %; Nucleated RBC # (auto) 0.02 K/uL (0.00-0.12); Nucleated RBC % (auto) 0.1 %; Platelet Count 293 K/uL (130-400); RDW Coefficient of Variation 12.2 % (11.5-14.5); RDW Standard Deviation 38.4 fL (36.4-46.3); Red Blood Count 4.71 M/uL (4.70-6.10); White Blood Count 14.22 K/ul (4.8-10.8)
[2023-06-09 07:09] LABS: Albumin Level 3.9 gm/dl (3.4-5.0); BUN Creatinine Ratio 23.2 (10-20); Calcium 9.5 mg/dl (8.6-10.3); Creatinine Clr Calc Pharmacy 110.3 ml/min; Est GFR (African American) 110.6 ml/min; Est GFR (Non-African American) 95.4 ml/min; Magnesium 2.1 mg/dl (1.7-2.4); Phosphorus 2.7 mg/dl (2.5-4.9); Potassium 4.3 mmol/L (3.5-5.1)
[2023-06-09] MEDS: PANTOprazole 40 MG TAB PO SCH (08:50)
[2023-06-09] MEDS: GABAPENTIN 300 MG CAP PO SCH ×3 (08:50→21:12)
[2023-06-09] MEDS: FEXOFENADINE HCL 180 MG TAB PO SCH (08:50)
[2023-06-09] MEDS: DOCUSATE SODIUM 100 MG CAP PO SCH ×2 (08:51→21:12)
[2023-06-09] MEDS: POLYETHYLENE (MIRALAX) 17 GM PACK PO SCH (08:52)
[2023-06-09] MEDS: HYDROmorphone INJ 0.5 MG/0.5 ML SYR IV PRN (08:57)
[2023-06-09] MEDS: oxyCODONE HCL 10 MG TABCR (OxyCONTIN) PO SCH ×2 (08:57→21:12)
--- NOTE | 2023-06-09 10:02 | Orthopedic Progress Note ---
Date of Service June 09, 2023 Assessment & Plan (1) Lumbar back pain with radiculopathy affecting left lower extremity: Plan: At this time he is can attempt weaning from all IV pain medications. He is able to tolerate oral pain regimen and will discharge home tomorrow. Admission and Anticipated Discharge Date Admission Date: June 08, 2023 Subjective Back pain controlled leg pain improved Physical Exam Physical Exam: Patient is up and ambulating. Is constricted testing. Appears comfortable. Results & Data Vital Signs (Past 12 Hours) Vital Signs Temp Pulse Resp BP Pulse Ox O2 Del Method 06/09/23 08:29 37.1 C 80 18 190/84 H 98 Room Air 06/08/23 22:06 36.6 C 63 16 133/67 95 Room Air
[2023-06-09] MEDS: oxyCODONE HCL IR 5 MG TAB (IMMEDIATE RELEASE) PO PRN ×3 (10:09→18:00)
[2023-06-09] MEDS ORDERED: oxyCODONE HCL 10 MG TABCR (OxyCONTIN) PO ONE (12:05)
--- NOTE | 2023-06-09 14:42 | Hospitalist Progress Note ---
Date of Service June 09, 2023 Assessment & Plan (1) Intractable low back pain: (2) Lumbar back pain with radiculopathy affecting left lower extremity: (3) Status post lumbar spine surgery for decompression of spinal cord: (4) Neurogenic claudication due to lumbar spinal stenosis: (5) GERD (gastroesophageal reflux disease): (6) Sleep apnea: Plan Intractable low back pain status post lumbar surgery with left lower extremity radiculopathy- Patient reports the original discomfort he had in his right low back and into the buttock area has resolved since the surgery He failed outpatient treatment with Medrol Dosepak, tramadol and oxycodone Acetaminophen 1000 mg p.o. every 6 hours as needed for mild pain or fever Continue oxycodone 10 mg p.o. every 4 as needed for moderate pain Increase OxyContin to 15 mg p.o. twice daily Added bowel regimen since he is now going to be on narcotics Continue IV Decadron Continue gabapentin 100 mg p.o. 3 times daily Orthopedic spine surgery involved. No surgery planned GERD- Change omeprazole to pantoprazole per formulary interchange Admission and Anticipated Discharge Date Admission Date: June 08, 2023 Subjective Patient says that his pain is better controlled since the OxyContin was started last night. However it is not controlled enough. He is still requiring IV Dilaudid. Review of Systems Review of Systems: All systems reviewed & are unremarkable except as noted in Subjective Physical Exam Physical Exam: General: Awake, conversant Heart: S1, S2/regular rate and rhythm, no murmur rubs or gallops Lungs: Clear to auscultation bilaterally. Normal effort Abdomen: Soft/nontender/nondistended. No hepatosplenomegaly Extremities: No clubbing/cyanosis. No edema Behavior: Appropriate, cooperative Results & Data Results & Data Vital Signs (Past 12 Hours) Vital Signs Temp Pulse Resp BP Pulse Ox O2 Del Method 06/09/23 08:29 37.1 C 80 18 190/84 H 98 Room Air PG Care Time/CCT Total # of Minutes Spent Total Time Spent with Patient: Total time spent is greater than 50% in coordination of care (as documented) at patient's floor/unit and/or counseling patient: Coding Level of Care Code 65164 SUB INP/OBS CARE 2/35MIN Diagnoses Intractable low back pain M54.59 Lumbar back pain with radiculopathy affecting left lower extremity M54.16 Status post lumbar spine surgery for decompression of spinal cord Z98.890 Neurogenic claudication due to lumbar spinal stenosis M48.062 GERD (gastroesophageal reflux disease) K21.9 Sleep apnea G47.30
[2023-06-10] MEDS: ACETAMINOPHEN 500 MG TAB PO PRN (00:02)
[2023-06-10] MEDS: dexAMETHasone 6 MG in SYRINGE 0 ML IV SCH (02:04)
[2023-06-10 06:08] LABS: Basophils # (auto) 0.01 K/uL (0.00-0.20); Basophils % (auto) 0.1 %; Hematocrit (blood only) 39.8 % (42.0-52.0); Hemoglobin 13.1 g/dl (14.0-18.0); Immature Granulocytes # (auto) 0.57 K/uL (0.01-0.20); Lymphocytes # (auto) 1.33 K/uL (1.20-3.40); Lymphocytes % (auto) 11.6 %; Mean Corpuscular Hemoglobin 28.2 pg (25.0-34.0); Mean Corpuscular Hgb Conc 32.9 g/dL (32.0-36.0); Mean Corpuscular Volume 85.8 fL (80.0-100.0); Mean Platelet Volume 9.1 fL (9.4-12.4); Monocytes # (auto) 0.52 K/uL (0.11-0.59); Monocytes % (auto) 4.5 %; Neutrophils # (auto) 9.02 K/uL (1.40-6.50); Neutrophils % (auto) 78.8 %; Nucleated RBC # (auto) 0.02 K/uL (0.00-0.12); Nucleated RBC % (auto) 0.2 %; Platelet Count 285 K/uL (130-400); RDW Coefficient of Variation 12.2 % (11.5-14.5); RDW Standard Deviation 37.7 fL (36.4-46.3); Red Blood Count 4.64 M/uL (4.70-6.10); White Blood Count 11.45 K/ul (4.8-10.8)
[2023-06-10 06:32] LABS: Albumin Level 3.7 gm/dl (3.4-5.0); BUN Creatinine Ratio 22.1 (10-20); Calcium 9.4 mg/dl (8.6-10.3); Creatinine Clr Calc Pharmacy 95.2 ml/min; Est GFR (African American) 99.7 ml/min; Est GFR (Non-African American) 86.1 ml/min; Magnesium 2.1 mg/dl (1.7-2.4); Potassium 4.7 mmol/L (3.5-5.1)
[2023-06-10] MEDS: PANTOprazole 40 MG TAB PO SCH (08:39)
[2023-06-10] MEDS: DOCUSATE SODIUM 100 MG CAP PO SCH (08:39)
[2023-06-10] MEDS: GABAPENTIN 300 MG CAP PO SCH (08:39)
[2023-06-10] MEDS: FEXOFENADINE HCL 180 MG TAB PO SCH (08:39)
[2023-06-10] MEDS: POLYETHYLENE (MIRALAX) 17 GM PACK PO SCH (08:40)
[2023-06-10] MEDS ORDERED: oxyCODONE HCL 15 MG TABCR (OxyCONTIN) PO SCH (09:00)
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
[2023-06-10] MEDS: oxyCODONE HCL IR 5 MG TAB (IMMEDIATE RELEASE) PO PRN (10:05)
[2023-06-10] MEDS ORDERED: methylPREDNISolone 4 MG TAB, 6 DAY TAPER PO SCH (10:45)
--- NOTE | 2023-06-10 11:31 | Orthopedic Progress Note ---
Date of Service June 10, 2023 Assessment & Plan (1) Lumbar back pain with radiculopathy affecting left lower extremity: Plan: This time we will continue his medications as prescribed we will see him next Sunday in the office for his first postop appointment. Admission and Anticipated Discharge Date Admission Date: June 08, 2023 Subjective Back pain controlled with leg pain improved Physical Exam Physical Exam: Patient appears comfortable. Is up and ambulating. Distracted testing. Results & Data Vital Signs (Past 12 Hours) Vital Signs Temp Pulse Resp BP Pulse Ox O2 Del Method 06/10/23 08:35 36.8 C 68 18 141/87 H 95 Room Air
== END 2023-06-10 13:42 | disposition home or self-care (01) ==
LOC: EDINP 21:58 → ED 21:58 → SUATTDRO 06-07 05:40 → 3N 06-07 06:22
DX: M48.062 Spinal stenosis, lumbar region with neurogenic claudication; Z98.890 Other specified postprocedural states; G89.18 Other acute postprocedural pain; G47.30 Sleep apnea, unspecified; K21.9 Gastro-esophageal reflux disease without esophagitis; Z79.899 Other long term (current) drug therapy; Z88.0 Allergy status to penicillin; M54.16 Radiculopathy, lumbar region

== ENCOUNTER 2024-08-18 09:22 | Inpatient (IN) ==
--- NOTE | 2024-08-05 09:22 | PAT Medication Instructions ---
Medication Instructions Date of Service August 05, 2024 Home Medications fexofenadine 180 mg tablet 180 mg PO QAM omeprazole 20 mg tablet,delayed release 20 mg PO DAILY PRN multivitamin 1 tab PO QAM acetaminophen 500 mg capsule 1,000 mg PO Q6H PRN cholecalciferol (vitamin D3) 125 mcg (5,000 unit) tablet (Vitamin D3) 125 mcg PO BID Continue as directed omeprazole 20 mg tablet,delayed release 20 mg PO DAILY PRN(if needed) DO NOT take the morning of surgery fexofenadine 180 mg tablet 180 mg PO QAM multivitamin 1 tab PO QAM cholecalciferol (vitamin D3) 125 mcg (5,000 unit) tablet (Vitamin D3) 125 mcg PO BID Take morning of surgery With a small sip of water, OTHERWISE NOTHING TO EAT OR DRINK AFTER MIDNIGHT: acetaminophen 500 mg capsule 1,000 mg PO Q6H PRN(if needed) Take evening before surgery acetaminophen 500 mg capsule 1,000 mg PO Q6H PRN(if needed) cholecalciferol (vitamin D3) 125 mcg (5,000 unit) tablet (Vitamin D3) 125 mcg PO BID Other Notes If you have any questions please call us at [phone] or [phone] or [phone] or [phone]
--- NOTE | 2024-08-07 08:25 | Anesthesiology Consultation ---
Date of Service August 07, 2024 Assessment & Plan (1) Encounter for pre-operative examination: - will request copy of surgeon ordered medical clearance, 08/06/24 Dr. López Julien [facility]. - ER 07/22/24 [facility]: "...thighs feel numb as of July 16...Dr. Snowden recommended IV dexamethasone, oral Medrol Dosepak, and follow-up in the office on Sunday as scheduled. Patient is happy with this plan noting he does not want to stay in the hospital..." Chart Review Chart Review: Pending: Refer to Additional Notes / Consult section and Patient seen in Pre Admission Testing Teaching & Discussion Pre-Anesthesia Teaching/Discussion Notes: Instructed NPO after midnight before surgery, except medications with 15 cc of water. Medication instructions provi ded according to the PAT guidelines. History Surgery Operation Date: 08/18/24 13:25 Proposed Procedures p L1-L2 Decompression, T12-L2 Fusion, with Spinal Cord Monitoring - Riavs Snowden, Height/Weight Height: 5 ft 10.5 in Weight: 85.5 kg Allergies Allergy/AdvReac Type Severity Reaction Status Date / Time No Known Allergies Allergy Verified 08/05/24 07:40 Medications Home Medications Medication Instructions Recorded Confirmed Last Taken fexofenadine 180 mg tablet 180 mg PO QAM 05/01/23 08/05/24 07/21/24 omeprazole 20 mg tablet,delayed 20 mg PO DAILY PRN GERD 05/01/23 08/05/24 04/19/24 release multivitamin 1 tab PO QAM 04/08/24 08/05/24 07/21/24 acetaminophen 500 mg capsule 1,000 mg PO Q6H PRN Pain 08/05/24 08/05/24 Unknown cholecalciferol (vitamin D3) 125 125 mcg PO BID 08/05/24 08/05/24 Unknown mcg (5,000 unit) tablet (Vitamin D3) Past Medical History Medical History (Updated 08/07/24 @ 08:35 by Hiral Krishnamurthy PA-C) GERD (gastroesophageal reflux disease) rare-only if eats after 7 pm-well controlled and stable - with Omeprazole PRN History of kidney stones x1 - Passed on own Refusal of blood transfusions as patient is [employer] Sleep apnea BiPAP Spinal stenosis Patient denies h/o stroke, seizures, heart attack, heart failure, DM, HTN, or blood clots/DVTs. Exercise / Class Metabolic Activity II 4-5 Yardwork/Stairs/Walk up hill (denies chest discomfort or shortness of breath with one flight of stairs) Past Family History Family History Other No family history of adverse response to anesthesia Past Surgical History Surgical History History of colonoscopy History of esophagogastroduodenoscopy (EGD) History of right cataract extraction (04/21/24) History of wisdom tooth extraction Hx of LASIK Hx of lumbosacral spine surgery 06/01/23, L2-L5 decompression and fusion, [facility] Past Anesthesia History No Hx of Anesthesia Complications and No Family Hx of Anesthesia Complications History of PONV No Hx of PONV and No Hx of Motion Sickness Social History Smoking Status: Never smoker Do You Dip or Chew Tobacco: No Hx Alcohol Use: Yes Alcohol type: beer alcohol intake frequency: a few times a month Hx Substance Use: No substance use type: does not use Review of Systems Patient denies chest pain, shortness of breath, dyspnea on exertion, fever, chills, cough, wheezing, or palpitations. Physical Exam Vital Signs Vitals BP 145/76 P 69 TEMP 98.5 SP02 96% on RA RESP 18 Physical Patient resting comfortably in chair in no acute distress, alert and oriented, responding appropriately throughout visit Full cervical extension range of motion without pain TMD 3.5 finger breadths Mallampati Score 3 Dentition: several caps/crowns and permanent wire lower teeth; denies chipped or loose teeth, implants or bridges Lungs: normal respiratory effort. Good air movement, clear throughout to auscultation, no adventitious breath sounds Cardiac: regular rate and rhythm, no murmurs noted Carotid arteries: negative bruit bilat Lab Results Anesthesia Preop Results Results Anesthesia Widget: WBC 9.15 K/ul (4.8-10.8) 07/22/24 Hgb 17.5 g/dl (14.0-18.0) 07/22/24 Hct 51.8 % (42.0-52.0) 07/22/24 Plt 179 K/uL (130-400) 07/22/24 Na 140 mmol/L (136-145) 07/22/24 K 4.1 mmol/L (3.5-5.1) 07/22/24 Cl 103 mmol/L (98-107) 07/22/24 CO2 29 mmol/L (21-32) 07/22/24 BUN 22 mg/dl (6-23) 07/22/24 Creat 0.96 mg/dl (0.6-1.4) 07/22/24 Glucose Level 94 mg/dl (70-99(Fasting)) 07/22/24 PT 10.9 Seconds (9.0-12.0) 08/07/24 PTT 29 Seconds (21-31) 08/07/24 INR 1.0 (0.9-1.1) 08/07/24 Urine Color Yellow 08/07/24 Urine Appearance Clear (Clear) 08/07/24 Urine pH 5.5 (4.5-7.5) 08/07/24 Urine Specific Harrington 1.008 (1.000-1.030) 08/07/24 Urine Protein Negative (Negative) 08/07/24 Urine Glucose (UA) Negative (Negative) 08/07/24 Urine Ketones Negative (Negative) 08/07/24 Urine Blood Negative (Negative) 08/07/24 Urine Nitrite Negative (Negative) 08/07/24 Urine Bilirubin Negative (Negative) 08/07/24 Urine Urobilinogen Negative (Negative) 08/07/24 Urine Leukocyte Esterase Negative (Negative) 08/07/24 Urine WBC (Auto) 0-5 /hpf (0-5) 07/22/24 Urine RBC (Auto) 6-10 /hpf (0-2) H 07/22/24 Urine Hyaline Casts (Auto) 0-2 /lpf (0-2) 07/22/24 Urine Epithelial Cells (Auto) 0-2 /hpf (0-2) 07/22/24 Urine Bacteria (Auto) None Seen (None Seen) 07/22/24 Testing Laboratory Results Patient requested type and screen be cancelled which was done. Electrocardiogram Date: 08/07/24 NSR, rate 61 bpm Chest X-Ray Date: 08/07/24 No acute findings. Stress Test Date: 10/04/18 Normal maximal treadmill exercise test MPHR 101% METS 11
[~2024-08-18 09:22] MED LIST: DEXAMETHASONE SOD INJ 4 MG/ML VIAL ONE; MIDAZOLAM HCL 1 MG/ML 2ML VIAL ONE; ONDANSETRON INJ 2 MG/ML 2 ML VIAL ONE; PROPOFOL IV EMULSION 10 MG/ML 20 ML VIAL IV ONE; ROCURONIUM BROMIDE 10 MG/ML 5 ML VIAL IV ONE; SUGAMMADEX SODIUM 200 MG/2 ML VIAL IV ONE; fentaNYL citrate PF 100 MCG/2 ML VIAL ONE
[2024-08-18] MEDS: ACETAMINOPHEN 500 MG TAB PO SCH (09:53)
[2024-08-18] MEDS: GABAPENTIN 600 MG DOSE PO SCH (09:53)
[2024-08-18] MEDS: CeleBREX 200 MG CAP PO SCH (09:53)
[2024-08-18] MEDS: LACTATED RINGER'S 1,000 ML IV SCH (09:53)
[2024-08-18] MEDS: LR 60ML/HR IV SCH (09:54)
--- NOTE | 2024-08-18 10:33 | History & Physical Bridge Note ---
Date of Service August 18, 2024 History & Physical Bridge Note I have examined the patient, reviewed the History & Physical and in the interval since the performance of the History & Physical I have noted the following changes of clinical significance: no changes noted
--- NOTE | 2024-08-18 10:34 | History & Physical Report ---
Date of Service August 18, 2024 Assessment & Plan (1) Spinal stenosis of lumbar region with radiculopathy: Plan: L1-L2 decompression, T12-L2 fusion History of Present Illness Chief Complaint: Back and leg pain Primary Care Provider: López Julien DO This is a 63-year-old male who presents with chronic cyst and back and leg pain after failing course of nonoperative care is here for surgical invention. Allergies Allergy/AdvReac Type Severity Reaction Status Date / Time No Known Allergies Allergy Verified 08/18/24 09:28 Home Medications Medication Instructions Recorded Confirmed Type fexofenadine 180 mg tablet 180 mg PO QAM 05/01/23 08/18/24 History omeprazole 20 mg tablet,delayed 20 mg PO DAILY PRN GERD 05/01/23 08/18/24 History release multivitamin 1 tab PO QAM 04/08/24 08/18/24 History acetaminophen 500 mg capsule 1,000 mg PO Q6H PRN Pain 08/05/24 08/18/24 History cholecalciferol (vitamin D3) 125 125 mcg PO BID 08/05/24 08/18/24 History mcg (5,000 unit) tablet (Vitamin D3) Past Med/Surg History Problem List (Updated 08/18/24 @ 10:34 by Rivas Snowden DO) Spinal stenosis of lumbar region with radiculopathy Lumbar back pain with radiculopathy affecting left lower extremity (Acute) Intractable low back pain (Acute) Status post lumbar spine surgery for decompression of spinal cord (Acute) Neurogenic claudication due to lumbar spinal stenosis Encounter for pre-operative examination Medical History (Updated 08/18/24 @ 10:34 by Rivas Snowden DO) History of kidney stones x1 - Passed on own GERD (gastroesophageal reflux disease) rare-only if eats after 7 pm-well controlled and stable - with Omeprazole PRN Sleep apnea BiPAP Refusal of blood transfusions as patient is [employer] Spinal stenosis Surgical History History of right cataract extraction (04/21/24) Hx of lumbosacral spine surgery 06/01/23, L2-L5 decompression and fusion, [facility] History of colonoscopy Hx of LASIK History of wisdom tooth extraction History of esophagogastroduodenoscopy (EGD) Family History Other No family history of adverse response to anesthesia Social History Smoking Status: Never smoker Second Hand Exposure: No; Do You Dip or Chew Tobacco: No; Tobacco Cessation Education Requested by Patient: No Hx Alcohol Use: Yes Alcohol type: beer Alcohol type Comment: pt states he no longer drinks Hx Substance Use: No Preferred Language: Cuban Communication Ability: Effective Racetrack Steward Required: No Beliefs That Will Affect Care: Latter Day Latter Day Beliefs: Roman Catholic - No Blood Products Current Living Situation: Other Current Living Situation Comment: Daughter Other Information That Helps Us Care for You: No Feels Safe at Home: Yes Safety Concerns: Feels Safe At This Time Assistive Devices: BiPap, Glasses and Other Assistive Devices Comment: Lower Retainer Physical Exam Physical Exam: Patient is alert and oriented Heart regular rhythm Lungs clear Results & Data Results & Data Vital Signs (Past 12 Hours) Vital Signs Temp Pulse Resp BP Pulse Ox O2 Del Method 08/18/24 09:40 37.0 C 71 18 160/80 H 97 Room Air
[2024-08-18] MEDS ORDERED: ONDANSETRON INJ 2 MG/ML 2 ML VIAL IV PRN ×2 (10:49→15:48)
[2024-08-18] MEDS ORDERED: NALOXONE HCL 0.4 MG/1 ML VIAL/CARP IV PRN ×2 (10:49→15:48)
[2024-08-18] MEDS ORDERED: HYDROmorphone INJ 1 MG/ML SYRINGE IV PRN ×2 (10:49→15:48)
[2024-08-18] MEDS ORDERED: fentaNYL citrate PF 100 MCG/2 ML VIAL IV PRN (10:49)
[2024-08-18] MEDS ORDERED: ePHEDrine sulfate 50 MG/ML AMP IV PRN (10:49)
[2024-08-18] MEDS ORDERED: FLUMAZENIL 0.1 MG/1 ML 10 ML VIAL IV PRN (10:49)
[2024-08-18] MEDS ORDERED: PROMETHAZINE HCL 6.25 MG in SODIUM CHLORIDE 0.9% 50 ML IV PRN (10:49)
[2024-08-18] MEDS ORDERED: ATROPINE SULFATE 0.1 MG/ML 10ML SYR IV PRN (10:49)
[2024-08-18] MEDS ORDERED: KETAMINE HCL 10MG/ML SYR ONE (10:55)
[2024-08-18] MEDS: ceFAZolin 2000MG 2,000 MG/15 ML SYR IV SCH ×2 (11:02→20:18)
[2024-08-18] MEDS ORDERED: ROCURONIUM BROMIDE 10 MG/ML 5 ML VIAL IV ONE (11:27)
[2024-08-18] MEDS ORDERED: ePHEDrine sulfate 50 MG/5 ML SYR ONE (11:49)
[2024-08-18] MEDS: ceFAZolin 330 MG/ML 1 GM VIAL ONE (11:55)
[2024-08-18] MEDS: BUPIVACAINE/EPINEPHRINE 0.25% 1:200,000 30 ML VIAL ONE (11:59)
[2024-08-18] MEDS ORDERED: SUGAMMADEX SODIUM 200 MG/2 ML VIAL IV ONE (12:44)
--- NOTE | 2024-08-18 13:09 | Operative Report ---
Post Operative Report Pre & Post Diagnosis Operation Date: 08/18/24 11:05 Pre-Op Diagnosis: #1 lumbar spondylosis with radiculopathy #2 lumbar spine disc herniation with radiculopathy #3 lumbar spinal stenosis Post-Op Diagnosis: Same I identified the patient and participated in the time-out.: Yes Procedure Operation Date: 08/18/24 11:05 Actual Procedures #1 lumbar decompression with bilateral facetectomies and foraminotomies T12-L1 L1-L2. #2 posterior spinal fusion T12-L2. #3 placement of posterior instrumentation T12-L2 with connectors at L3-L4 using medic Creo. #4 interbody fusion L1-L2. #5 placement Spira 11 x 26 mm at L1-L2. #6 placement locally harvested morselized autograft and posterior gutters. #7 placement infuse collagen sponge, with Koros in the posterior lateral gutters and os design interbody space. #8 application of versa wrap over the exposed dura. Surgeon Rivas Snowden, Sign Language Interpreter Aure Fair Estimated Blood Loss 200 Findings Consistent with Post-Op Diagnosis Specimens None Indications This is a 63-year-old male who presents manage diagnosis of failing course of nonoperative care is here for surgical invention. Description of Procedure Patient was met with identified informed consent obtained. Patient was then taken to the operative suite underwent intubation placed in a prone position on the Miller table on top of the chest pad and hip bolsters. All bony promises well-padded I suspected to ensure no external pressure placed upon them. This point the thoracolumbar spine was prepped and draped in a sterile fashion. Sharp dissection with the assistance of Bovie cautery from down to and exposing the lamina transverse processes of T12-L1 and instrumentation at L2-L3 bilaterally. And then proceeded perform a complete laminectomy of L1 with bilateral medial facetectomies and foraminotomies addressing severe neural compression and addressing the disc herniation. Then performed a partial laminectomy of T12 with bilateral medial facetectomies to address all subarticular stenosis. Pedicle screws were then placed in T12-L1 bilaterally with assistance of fluoroscopy and connectors attached to the eve at L [address] of transforaminal approach on the right a complete discectomy of L1-L2 was performed endplates guarded to subcortical bone and a 11 x 26 mm spiral cage filled with os design bone graft tapped in position. Proper size rods were then placed compressed locked in final position bilaterally. The transverse processes of T12-L1 and L2 burred to subcortical bleeding bone. Infuse collagen sponge combined with Koros and local autograft placed in the posterior gutters. First wrap placed over the exposed dura. 15 round KEELY drain inserted. The incision was then closed with 1 Vicryl the fascia 2-0 Vicryl subcutaneously and 4 Monocryl for final skin closure. Steri-Strips sterile dressing placed. Cair ent waken taken the PACU stable condition. Please note spinal cord monitoring was utilized at the procedure no changes noted. Aure Fair was present at the entire procedure and all the patient positioning complex portion of the surgery and final skin closure. I attest to the content of the Intraoperative Record and any orders documented therein. Any exceptions are noted below.
[2024-08-18] MEDS: FLOSEAL HEMOSTATIC MATRIX 10ML TOP ONE (13:34)
--- NOTE | 2024-08-18 14:22 | Fluoroscopy Report ---
FL lumbar spine 2-3V CLINICAL HISTORY: T12-L2 fusion COMPARISON STUDY: 07/22/2024 FLUOROSCOPY TIME: 22 seconds FLUOROSCOPY IMAGES: 3 EXPOSURE DOSE: 14 mGy FINDINGS: Fluoroscopy was provided for lumbar fusion. IMPRESSION: Intraoperative fluoroscopy. ACT 112: Negative or not required by law. Electronically signed by: Edison Wong M.D. 08/18/2024 2:21 PM
[2024-08-18] MEDS: LABETALOL HCL IV 5 MG/ML 20ML IV STA (14:35)
--- NOTE | 2024-08-18 15:02 | Anesthesiology Progress Note ---
Date of Service August 18, 2024 Anesthesia Post Procedure Vital Signs Vital Signs: Temp Pulse Pulse Resp BP BP Pulse Ox 08/18/24 14:50 81 20 166/94 H 97 08/18/24 14:40 86 18 162/93 H 97 08/18/24 14:35 93 H 176/100 H 08/18/24 14:30 100 H 14 176/100 H 96 08/18/24 14:20 98 H 20 169/92 H 97 08/18/24 14:10 95 H 14 181/99 H 95 08/18/24 14:00 94 H 16 180/99 H 96 08/18/24 13:50 98 H 16 175/104 H 98 08/18/24 13:40 87 16 168/81 H 100 08/18/24 13:30 36 C L 93 H 14 164/93 H 99 08/18/24 09:40 37.0 C 71 18 160/80 H 97 O2 Del Method O2 Flow Rate 08/18/24 14:50 Room Air 08/18/24 14:40 Room Air 08/18/24 14:35 08/18/24 14:30 Room Air 08/18/24 14:20 Room Air 08/18/24 14:10 Room Air 08/18/24 14:00 Room Air 08/18/24 13:50 Oxymask 2 08/18/24 13:40 Oxymask 4 08/18/24 13:30 Oxymask 6 08/18/24 09:40 Room Air Pain Intensity Lower Back: Pain Intensity: 7 Transfer of Care Handoff Completed per policy Notes Mental Status: alert / awake / arousable Patient Amnestic to Procedure: Yes Nausea / Vomiting: adequately controlled Pain: adequately controlled Airway Patency, RR, SpO2: stable & adequate BP & HR: stable & adequate Hydration State: stable & adequate Anesthetic Complications: no major complications apparent
[2024-08-18] MEDS ORDERED: FAMOTIDINE 20 MG TAB PO PRN (15:48)
[2024-08-18] MEDS ORDERED: ONDANSETRON 4 MG OD TAB PO PRN (15:48)
[2024-08-18] MEDS ORDERED: LORazepam 0.5 MG TAB PO PRN (15:48)
[2024-08-18] MEDS ORDERED: ACETAMINOPHEN 1,000 MG/100 ML VIAL IV PRN (15:48)
[2024-08-18] MEDS ORDERED: SOD PHOSPHATE/SOD BIPHOSPHATE ENEMA 132 ML BTL PR PRN (15:48)
[2024-08-18] MEDS ORDERED: PROMETHAZINE 12.5 MG/50.5 ML BAG IV PRN (15:48)
[2024-08-18] MEDS ORDERED: MAGNESIUM HYDROXIDE SUSP 30 ML UDC PO PRN (15:48)
[2024-08-18] MEDS ORDERED: diphenhydrAMINE Capsule 25 MG CAP PO PRN (15:48)
[2024-08-18] MEDS ORDERED: DO NOT ADMINISTER FLU VACCINE PRN (15:48)
[2024-08-18] MEDS ORDERED: METOCLOPRAMIDE HCL INJ 5 MG/ML 2 ML VIAL IV PRN (15:48)
[2024-08-18] MEDS ORDERED: HYDROmorphone INJ 0.5 MG/0.5 ML SYR IV PRN (15:48)
[2024-08-18] MEDS ORDERED: LORazepam 2 MG/1 ML VIAL IV PRN (15:48)
[2024-08-18] MEDS ORDERED: hydrOXYzine HCl 25 MG TAB PO PRN (15:48)
[2024-08-18] MEDS ORDERED: DO NOT ADMINISTER PNEUMOCOCCAL VACCINE PRN (15:48)
[2024-08-18] MEDS ORDERED: ALUMINUM/MAGNESIUM SUSP 30 ML UDC PO PRN (15:48)
[2024-08-18] MEDS ORDERED: bisacodyL 10 MG SUPP PR PRN (15:48)
[2024-08-18] MEDS ORDERED: PANTOprazole 40 MG TAB PO PRN (15:58)
[2024-08-18] MEDS: oxyCODONE HCL IR 5 MG TAB (IMMEDIATE RELEASE) PO PRN (16:30)
[2024-08-18] MEDS: LABETALOL HCL IV 5 MG/ML 20ML IV ONE (19:08)
--- NOTE | 2024-08-18 19:23 | Hospitalist Consultation ---
Date of Consultation August 18, 2024 Assessment & Plan (1) Sleep apnea: (2) Spinal stenosis of lumbar region with radiculopathy: (3) GERD (gastroesophageal reflux disease): Plan This pt is a 63 yo male with a h/o lumbar radiculopathy, GERD, kidney stone, anxiety disorder, and COLLIN on CPAP here for recovery after lumbar decompression and fusion at T12-L2. He reports the pain down his right buttock and leg is now resolved. Denies headaches or lightheadedness, no chest pain or shortness of breath, no nausea or abdominal pains. No acute concerns. The hospitalist service was consulted for postoperative medical management. #COLLIN on BiPAP-patient does not want to use BiPAP while he was here in the hospital - Supplemental O2 as needed at night for hypoxia #GERD-no acute issues - Continue Protonix as needed #Lumbar decompression and fusion-postoperative medical management as per spine surgery - Pain control, bowel regimen as per spine surgery - Has KEELY drain in place -Will follow CBC and BMP in the morning DVT prophylaxis-SCDs Disposition-continues to medical/surgical unit History of Present Illness Reason for Consultation: Medical management Requesting Physician: Dr. Snowden Attending Physician: Rivas Snowden, DO History of Present Illness This pt is a 63 yo male with a h/o lumbar radiculopathy, GERD, kidney stone, anxiety disorder, and COLLIN on CPAP here for recovery after lumbar decompression and fusion at T12-L2. He reports the pain down his right buttock and leg is now resolved. Denies headaches or lightheadedness, no chest pain or shortness of breath, no nausea or abdominal pains. No acute concerns. The hospitalist service was consulted for postoperative medical management. Allergies Allergy/AdvReac Type Severity Reaction Status Date / Time No Known Allergies Allergy Verified 08/18/24 09:28 Home Medications Medication Instructions Recorded Confirmed Type fexofenadine 180 mg tablet 180 mg PO QAM 05/01/23 08/18/24 History omeprazole 20 mg tablet,delayed 20 mg PO DAILY PRN GERD 05/01/23 08/18/24 History release multivitamin 1 tab PO QAM 04/08/24 08/18/24 History acetaminophen 500 mg capsule 1,000 mg PO Q6H PRN Pain 08/05/24 08/18/24 History cholecalciferol (vitamin D3) 125 125 mcg PO BID 08/05/24 08/18/24 History mcg (5,000 unit) tablet (Vitamin D3) oxycodone 5 mg tablet 5 mg PO Q6H PRN pain #30 tabs 08/19/24 Rx tramadol 50 mg tablet 50 mg PO Q6H PRN pain, moderate 08/19/24 Rx #30 tabs Patient History Medical History History of kidney stones x1 - Passed on own GERD (gastroesophageal reflux disease) rare-only if eats after 7 pm-well controlled and stable - with Omeprazole PRN Sleep apnea BiPAP Refusal of blood transfusions as patient is [employer] Spinal stenosis Surgical History History of right cataract extraction (04/21/24) Hx of lumbosacral spine surgery 06/01/23, L2-L5 decompression and fusion, [facility] History of colonoscopy Hx of LASIK History of wisdom tooth extraction History of esophagogastroduodenoscopy (EGD) Family History Other No family history of adverse response to anesthesia Social History (Updated 08/19/24 @ 09:54 by Carolina Rice MD) Smoking Status: Never smoker Second Hand Exposure: No; Do You Dip or Chew Tobacco: No; Hx Alcohol Use: No Hx Substance Use: No Preferred Language: Persian Communication Ability: Effective College Tutor Required: No Beliefs That Will Affect Care: Orthodox Orthodox Beliefs: jehovah witness marital status: / Current Living Situation: Family Current Living Situation Comment: Daughter Feels Safe at Home: Yes Assistive Devices: Walker Review of Systems Review of Systems: All systems reviewed & are unremarkable except as noted in HPI & below Physical Exam Constitutional: WD/WN, vitals as above Neck: trachea midline, no thyromegaly Respiratory: normal respiratory effort, lungs clear to auscultation Cardiovascular: RRR, no murmur, no edema Chest (Breasts): Chest: normal inspection of chest Gastrointestinal (Abdomen): normal bowel sounds, soft, nontender, no hepatosplenomegaly Musculoskeletal: Extremities: extremities normal to inspection; no cyanosis and no clubbing Skin: no rashes, warm and dry Neurologic: moves all extremities and awake; no focal motor deficits Psychiatric: A+Ox3, euthymic affect Lymphatic: no lymphedema Results & Data Results & Data Vital Signs (Past 12 Hours) Vital Signs Temp Pulse Pulse Resp BP BP Pulse Ox 08/18/24 19:08 105 H 120/80 08/18/24 18:40 36.8 C 105 H 16 120/80 95 08/18/24 17:54 36.5 C 112 H 16 147/84 H 94 08/18/24 17:18 36.8 C 108 H 18 135/86 95 08/18/24 16:18 36.8 C 108 H 18 139/84 95 08/18/24 15:49 36.8 C 103 H 18 146/80 H 95 08/18/24 15:48 36.8 C 103 H 18 146/80 H 95 08/18/24 15:30 85 16 148/84 H 94 08/18/24 15:15 88 14 146/82 H 93 08/18/24 15:10 92 H 16 152/89 H 92 08/18/24 15:00 36.4 C L 80 20 150/92 H 93 08/18/24 14:50 81 20 166/94 H 97 08/18/24 14:40 86 18 162/93 H 97 08/18/24 14:35 93 H 176/100 H 08/18/24 14:30 100 H 14 176/100 H 96 08/18/24 14:20 98 H 20 169/92 H 97 08/18/24 14:10 95 H 14 181/99 H 95 08/18/24 14:00 94 H 16 180/99 H 96 08/18/24 13:50 98 H 16 175/104 H 98 08/18/24 13:40 87 16 168/81 H 100 08/18/24 13:30 36 C L 93 H 14 164/93 H 99 08/18/24 09:40 37.0 C 71 18 160/80 H 97 O2 Del Method O2 Flow Rate 08/18/24 19:08 08/18/24 18:40 Room Air 08/18/24 17:54 Room Air 08/18/24 17:18 Room Air 08/18/24 16:18 08/18/24 15:49 Room Air 08/18/24 15:48 08/18/24 15:30 Room Air 08/18/24 15:15 Room Air 08/18/24 15:10 Room Air 08/18/24 15:00 Room Air 08/18/24 14:50 Room Air 08/18/24 14:40 Room Air 08/18/24 14:35 08/18/24 14:30 Room Air 08/18/24 14:20 Room Air 08/18/24 14:10 Room Air 08/18/24 14:00 Room Air 08/18/24 13:50 Oxymask 2 08/18/24 13:40 Oxymask 4 08/18/24 13:30 Oxymask 6 08/18/24 09:40 Room Air PG Care Time/CCT Total # of Minutes Spent Total Time Spent with Patient: Total time spent is greater than 50% in coordination of care (as documented) at patient's floor/unit and/or counseling patient: Coding Level of Care Code 09505 IN/OBS CONSULT LVL 2,35M Diagnoses Sleep apnea G47.30 Spinal stenosis of lumbar region with radiculopathy M48.061; M54.16 GERD (gastroesophageal reflux disease) K21.9
[2024-08-18] MEDS: CHOLECALCIFEROL 125 MCG (5,000 UNITS) TAB PO SCH (20:19)
[2024-08-18] MEDS: DOCUSATE SODIUM/SENNA 50/8.6MG TAB PO SCH (20:19)
[2024-08-19] MEDS: traMADol HCL 50 MG TABLET PO PRN (02:15)
[2024-08-19] MEDS: POLYETHYLENE (MIRALAX) 17 GM PACK PO SCH (05:02)
[2024-08-19 07:29] LABS: Basophils # (auto) 0.01 K/uL (0.00-0.20); Basophils % (auto) 0.1 %; Hematocrit (blood only) 47.8 % (42.0-52.0); Immature Granulocytes % (auto) 0.7 %; Lymphocytes # (auto) 1.18 K/uL (1.20-3.40); Lymphocytes % (auto) 8.2 %; Mean Corpuscular Hemoglobin 28.8 pg (25.0-34.0); Mean Corpuscular Hgb Conc 33.5 g/dL (32.0-36.0); Mean Corpuscular Volume 86.1 fL (80.0-100.0); Mean Platelet Volume 9.3 fL (9.4-12.4); Monocytes # (auto) 1.19 K/uL (0.11-0.59); Monocytes % (auto) 8.3 %; Neutrophils # (auto) 11.84 K/uL (1.40-6.50); Neutrophils % (auto) 82.7 %; Platelet Count 237 K/uL (130-400); RDW Coefficient of Variation 12.3 % (11.5-14.5); RDW Standard Deviation 38.5 fL (36.4-46.3); Red Blood Count 5.55 M/uL (4.70-6.10); White Blood Count 14.32 K/ul (4.8-10.8)
[2024-08-19 07:40] LABS: BUN Creatinine Ratio 20.2 (10-20); Calcium 9.4 mg/dl (8.6-10.3); Creatinine Clr Calc Pharmacy 73.7 ml/min; Potassium 4.3 mmol/L (3.5-5.1)
[2024-08-19] MEDS: FEXOFENADINE HCL 180 MG TAB PO SCH (07:58)
[2024-08-19] MEDS: dexAMETHasone 6 MG in SYRINGE 0 ML IV SCH (07:58)
[2024-08-19] MEDS: MULTIVITAMIN TAB PO SCH (07:58)
--- NOTE | 2024-08-19 08:13 | Orthopedic Progress Note ---
Date of Service August 19, 2024 Assessment & Plan (1) Spinal stenosis of lumbar region with radiculopathy: Plan: Today we will we will begin physical therapy. Discontinue his Thorpe. Monitor his KEELY operatively discharge home next few days. Admission and Anticipated Discharge Date Admission Date: August 18, 2024 Subjective Back pain controlled leg pain improved Physical Exam Physical Exam: Patient is in the chair at the bedside. Is comfortable. Distracted testing. Results & Data Vital Signs (Past 12 Hours) Vital Signs Temp Pulse Resp BP Pulse Ox O2 Del Method 08/19/24 07:19 36.6 C 77 18 111/68 94 Room Air 08/19/24 02:17 36.7 C 70 16 139/66 94 Room Air 08/18/24 22:01 36.9 C 116 H 18 156/77 H 96 Room Air
--- NOTE | 2024-08-19 17:16 | Communication Note ---
Date of Service: August 19, 2024 Pt not seen today due to his concerns for being charged extra money for a hospitalist consult. I reviewed his labs and vitals, discussed care with RN and no acute concerns. Pt not seen, seems to be doing stable Hospitalist service will sign off. Please feel free to re-consult for acute concerns.
[2024-08-20] MEDS: ACETAMINOPHEN 500 MG TAB PO PRN (01:06)
[2024-08-20 07:41] VITALS: RESP 16
--- NOTE | 2024-08-20 08:27 | Orthopedic Progress Note ---
Date of Service August 20, 2024 Assessment & Plan (1) Lumbar back pain with radiculopathy affecting left lower extremity: Plan: At this time we will continue physical therapy monitor his KEELY output anticipate discharge home tomorrow. Admission and Anticipated Discharge Date Admission Date: August 18, 2024 Subjective Back pain is controlled leg pain improved Physical Exam Physical Exam: Patient is up and ambulating about the room. Good strength testing. Appears comfortable. Results & Data Vital Signs (Past 12 Hours) Vital Signs Temp Pulse Resp BP Pulse Ox O2 Del Method 08/20/24 07:40 36.8 C 89 16 137/81 97 Room Air 08/19/24 21:50 36.9 C 96 H 14 127/76 93 Room Air
[2024-08-21 07:45] VITALS: BP 130/67; PULSE 74; TEMP 98.1; O2SAT 96
--- NOTE | 2024-08-21 12:17 | Discharge Summary ---
Date of Service August 21, 2024 Admission HPI Per Admitting Provider This is a 63-year-old male who presents with chronic cyst and back and leg pain after failing course of nonoperative care is here for surgical invention. Principal Diagnosis Lumbar spondylosis with radiculopathy Discharge Data Allergies Allergy/AdvReac Type Severity Reaction Status Date / Time No Known Allergies Allergy Verified 08/18/24 09:28 Consultations 08/18/24 15:48 Consult Hospitalist Routine Procedures Performed Operation Date: 08/18/24 11:05 Actual Procedures p L1-L2 Decompression, T12-L2 Fusion, Spinal Cord Monitoring(Not Applicable) - Rivas Snowden DO Ordered Studies 08/18/24 06:30 [place] lumbar spine 2-3V Routine Hospital Course (1) Spinal stenosis of lumbar region with radiculopathy: Patient went lumbar decompression fusion tolerated as well as negative orthopedic for postoperative. Postop day progressed appropriate. Pain well- controlled. KEELY drain decreasing. Excellent strength testing. Stable to discharge home. Discharge orders instructions found in chart for further rev iew. Total Time Total Time Spent Total Time Spent (In Minutes): 20 minutes Discharge Plan Discharge Items Patient Disposition: Home - Self-Care Reason For Visit: Lumbar Disc Herniation Discharge Diagnosis: Lumbar spinal stenosis with radiculopathy Activity: As commented below Non-emergency contact: Primary Care Provider Call non-emergency contact if: you have any medication questions Follow-up/Referrals: López Julien DO [Primary Care Provider] - Diet: Regular Addtl Attending Provider Instructions: ACTIVITY RECOMMENDATIONS: SELF CARE INSTRUCTIONS AFTER THORACIC/LUMBAR FUSIONS 1. You may walk to your tolerance. It is good exercise for your legs and back. Expect some back and intermittent leg aches and pains. 2. You may perform "counter-top" level activities (make a sandwich, bob with a project, etc.). 3. No bending or lifting of more than 10 pounds or back twisting of any nature (roll like a log when turning in bed). 4. You may ride in a car for 20-30 minutes at a time. No driving until after your first visit with your doctor. 5. Frequent changes of position and restricting sitting to 30 minutes at a time will help limit the amount of back spasms and stiffness you may experience. 6. You may discontinue the use of ambulatory aids (cane, crutches, etc.) once your strength and confidence allow. 7. You may director of purchasing the shower and let water strike your incision when you arrive home at least once daily. Do not take a tub bath, sit in a hot tub or go into a swimming pool until after your first recheck in the office. 8. You may resume previous diet. SPECIAL CARE INSTRUCTIONS: VERY IMPORTANT TO READ AND REVIEW A. Your surgical incision has been closed with a cosmetic suture under the skin that will dissolve in about 6 weeks. In 14 days, you can use a pair of clean scissors and cut the suture that is left outside of the skin at the ends of your incision. 1. The small skin tapes can be removed 7 days after surgery if they have not fallen off by that point. 2. You may keep the wound open to air as much as possible to promote healing after post-op day number 5 unless told otherwise by your doctor. 3. If you think the wound looks like it is becoming infected (redness or worsening drainage) and/or you are experiencing fever, chill or worsening back pain and muscle spasms, contact the office so that we may evaluate you as soon as possible. B. Complications are uncommon, but please contact us if you have any signs or symptoms of: 1. wound infection (fever higher than 102.5 degrees F, redness, separation of wound, drainage, or increasing pain from the incision) 2. blood clots in legs (pain, swelling, redness and warmth in legs) 3. urinary tract infection (fever higher than 102.5 degrees F, burning upon urination or increased frequency of urination) 4. nerve problems (inability to walk on your toes or heels, numbness, loss of bowel or bladder control) 5. any other symptoms that concern you C. Please call the office at if you have any concerns or questions about your operation or recovery. D. No smoking! Smoking drastically decreases the chance of a solid fusion. E. Do not take any anti-inflammatory medications (Indocin, Advil, Motrin, Aspirin, Naprosyn, etc.) as these may inhibit the chance of a solid fusion. Tylenol is okay to take for pain. MANAGING PAIN AFTER SPINAL SURGERY 1. Narcotic medication is intended for short-term use and will be provided for surgical pain. Surgical pain usually lasts for a period of 4-6 weeks. Narcotic medication includes Percocet, Vicodin, Darvocet, Tylenol #3 or Lortab. 2. Longer-term pain is more appropriately treated with non-narcotic medication such as Tylenol ES. 3. Muscle spasm is not appropriately treated with narcotics. Muscle relaxers such as Soma, Flexeril or Skelaxin can be used along with Tylenol ES. 4. Remember that we all live with some "aches and pains". This is not unusual or uncommon after an injury or as we get older. a. Back pain is expected and may include muscle spasms for 4 to 6 weeks after surgery. The pain should gradually improve. If the pain worsens for no apparent reason, please contact the office. b. Intermittent leg pain may also be experienced and should not be concerned about unless it worsens for no apparent reason. If so, please contact the office. 5. We will provide appropriate medication within the normal guidelines of their prescribed use. We will also be very cautious and aware of potential abuse and extended duration of patients' medication needs. a. Pain medications are for your comfort and to assist with sleep and rest so that the tissue can heal. They are not provided in order to return to normal activity and should not be used through the day. To do so or worsening pain at night can result from ongoing tissue damage and development of tolerance to the prescribed medicine. 6. Please allow 2-3 days to process refills. Prescriptions will not be mailed but must be picked up at the office. FOLLOW UP VISIT: Keep your scheduled follow-up appointment. Any questions, please call the office at . Pending Studies at Discharge: No Stand-Alone Forms: My [facility] [employer], Smoking Cessation Medications and DC Order Prescriptions: New tramadol 50 mg tablet 50 mg PO Q6H PRN (Reason: pain, moderate) Qty: 30 0RF oxycodone 5 mg tablet 5 mg PO Q6H PRN (Reason: pain) Qty: 30 0RF Continued fexofenadine 180 mg Tablet 180 mg PO QAM omeprazole 20 mg Tablet,Delayed Release (Dr/Ec) 20 mg PO DAILY PRN (Reason: GERD) multivitamin Tablet 1 tab PO QAM acetaminophen [Tylenol Extra Strength] 500 mg Capsule 1,000 mg PO Q6H PRN (Reason: Pain) cholecalciferol (vitamin D3) [Vitamin D3] 125 mcg (5,000 unit) Tablet 125 mcg PO BID Rx Instructions: preop/post op Discharge Orders: Discharge Order (Routine); Ordered 08/21/24 Ordered By: Rivas Snowden Admission Data Admit Date/Time: 08/18/24 13:14 Attending Provider: Rivas Snowden Admit Provider: Rivas Snowden Primary Care Provider: López Julien
== END 2024-08-21 13:30 | disposition home or self-care (01) | DRG 428 ==
LOC: ASU 09:22 → 3W 13:14